=== PATIENT | male | born 1965 | race Caucasian/White ===

== ENCOUNTER 2025-04-17 18:28 | Inpatient (IN) ==
[2025-04-17 19:10] LABS: Hematocrit (blood only) 40.4 % (42.0-52.0); Hemoglobin 13.4 g/dl (14.0-18.0); Immature Granulocytes # (auto) 0.02 K/uL (0.01-0.20); Immature Granulocytes % (auto) 0.3 %; Mean Corpuscular Hemoglobin 29.6 pg (25.0-34.0); Mean Corpuscular Volume 89.4 fL (80.0-100.0); Platelet Count 154 K/uL (130-400); RDW Standard Deviation 46.0 fL (36.4-46.3); Red Blood Count 4.52 M/uL (4.70-6.10); White Blood Count 7.29 K/ul (4.8-10.8)
[2025-04-17 19:23] LABS: Alanine Aminotransferase 16.0 U/L (7-52); Albumin Globulin Ratio 0.6 (0.9-2); Albumin Level 2.2 gm/dl (3.4-5.0); Alkaline Phosphatase 127.0 U/L (34-104); Anion Gap 8.0 (3-11); Bilirubin,Total 0.9 mg/dl (0.2-1.0); Blood Urea Nitrogen 4.0 mg/dl (6-23); Calcium 8.3 mg/dl (8.6-10.3); Carbon Dioxide 22.0 mmol/L (21-32); Chloride 107.0 mmol/L (98-107); Creatinine Clr Calc Pharmacy 64.7 ml/min; Globulin 4.0 gm/dl (2.5-4.0); Glucose 109.0 mg/dl (70-99(Fasting)); Lipase 23.0 U/L (11-82); Potassium 3.4 mmol/L (3.5-5.1); Sodium 137.0 mmol/L (136-145); Total Protein 6.2 gm/dl (6.0-8.3)
--- NOTE | 2025-04-17 19:34 | Emergency Department Note ---
Impression & Plan Cirrhosis, Fluid overload, Pulmonary edema, Anasarca ED Provider Note NAME: JEROMY AYOUB AGE: 59 SEX: M : 1965 ARRIVES VIA: Walk-In INFORMANT: Patient, ED PROVIDER(S): Xiang Ochoa DO CHIEF COMPLAINT: Weakness, swelling in his legs abdomen and HPI: Patient is a 59-year-old male brought in by family who notes that he has had increased swelling of his entire body including his legs belly which has been worsening over the past 2 weeks. They have been recently placed on Lasix and this has not been helping. He admits to feeling very weak and rundown. He did fall onto his buttocks today. He did not hit his head. Family notes that he has been slightly more confused than baseline. Denies any chest pain or shortness of breath. No nausea, vomiting, or diarrhea. ADDITIONAL HISTORY OBTAINED: Per HPI Chronic Medical/Social Conditions Affecting Care: Per HPI PAST MEDICAL HISTORY:See Below PAST SURGICAL HISTORY:See Below FAMILY HISTORY:See Below SOCIAL HISTORY:See Below HOME MEDICATIONS:See Below ALLERGIES:See Below VITALS:See Below PHYSICAL EXAMINATION: GENERAL: Sitting up in bed, alert, ill-appearing, disheveled HEAD: NC/AT EYE EXAM: normal conjunctiva. [PERRL and EOM's grossly intact.] OROPHARYNX: no exudate, no erythema, lips, buccal mucosa, and tongue normal and mucous membranes are moist NECK: supple, no nuchal rigidity, no adenopathy, non-tender LUNGS: Clear to auscultation. Normal chest wall mechanics HEART: no murmurs, S1 normal and S2 normal ABDOMEN: abdomen soft, non-tender, normo-active bowel sounds, no masses, no rebound or guarding. UPPER EXTREMITIES: upper extremities are grossly normal. LOWER EXTREMITIES: Pitting edema throughout the lower extremities tracking up to the abdomen NEURO EXAM: Normal sensorium, cranial nerves II-XII grossly intact, normal speech, no gross weakness of arms, no gross weakness of legs. MEDICAL DECISION MAKING: Patient is a 59-year-old male who presents ER for above-stated complaint. IV was established and blood work was obtained. Labs showed no significant leukocytosis or anemia. BMP with mild hypokalemia 3.4. LFTs bilirubin was unremarkable. Troponin was negative. BNP elevated at 115. Lipase was normal. UA was clean. On exam he has diffuse pitting edema from his feet tracking up into his abdomen and chest. Patient was given IV Lasix. Chest x-ray consistent with pulmonary edema and pleural effusions. CT of the head was negative. Case was discussed with the hospitalist for further evaluation management treatment. Consults/Care Managements Discussions: Per [facility] Triage Nursing notes reviewed. Limited review of prior medical records performed Vital Signs: reviewed and remarkable for no significant abnormalities Differential diagnosis: Infection, dehydration, metabolic abnormality, hypo/hyperglycemia, electrolyte disturbance, anemia, hypoxia, cardiac sources, intracerebral event, toxicologic, neurologic, as well as other pathologies. ER treatment provided: See below Diagnostics interpreted by me include EKG and cardiac monitoring as listed below: -Cardiac Monitoring: An order was placed for continuous cardiac monitoring. The monitor shows a rate of 70 with sinus rhythm. -ECG: Sinus rhythm at a [address] depressions in the septal leads Poor baseline in V3 QTc 505 -Laboratory studies:Interpreted by me as stated above in MDM and shown below. Imaging studies: Xrays: As interpreted by me: Portable AP upright 1 view of the chest shows pulmonary edema with effusions CTs show: CT head was negative Procedures:none Critical Care: None Past Med/Surg History Problem List (Updated 04/17/25 @ 22:36 by Xiang Ochoa DO) Anasarca (Acute) Pulmonary edema (Acute) Fluid overload (Acute) Cirrhosis (Acute) Social History Smoking Status: Unknown if ever smoked Preferred Language: Maori Feels Safe at Home: Yes Allergies Allergies Allergy/AdvReac Type Severity Reaction Status Date / Time No Known Allergies Allergy Unverified 04/11/25 15:56 Home Meds Home Medications Medication Instructions Recorded Confirmed carvedilol 6.25 mg tablet 6.25 mg PO BID 04/11/25 04/17/25 citalopram 20 mg tablet 20 mg PO QAM 04/11/25 04/17/25 eszopiclone 1 mg tablet (Lunesta) 1 mg PO HS 04/11/25 04/17/25 furosemide 20 mg tablet 20 mg PO QAM 04/11/25 04/17/25 levetiracetam 750 mg tablet 750 mg PO BID 04/11/25 04/17/25 levothyroxine 50 mcg tablet 50 mcg PO DAILYBB 04/11/25 04/17/25 potassium chloride 20 mEq 20 meq PO QAM 04/11/25 04/17/25 tablet,extended release(part/cryst) rosuvastatin 40 mg tablet 40 mg PO PM 04/11/25 04/17/25 Results & Data (ED) Vital Signs Vital Signs - 24 hr 04/17/25 18:29 04/17/25 18:46 04/17/25 19:05 Temperature 36 C L 37 C Temperature Source Temporal Artery Scan Oral Pulse Rate 73 74 Pulse Rate [Right Finger] 70 Pulse Rhythm Pulse Rhythm [Right Finger] Regular Pulse Strength [Right Finger] Normal Respiratory Rate 19 20 Respiratory Effort / Characteristics Non-Labored Spontaneous Respiratory Depth Normal Respiratory Pattern Regular Blood Pressure 135/84 Blood Pressure [Right Arm] 129/82 Blood Pressure Mean 101 Blood Pressure Mean [Right Arm] 97 Blood Pressure Position [Right Arm] Lying Pulse Oximetry 97 100 Oxygen Delivery Method Room Air Room Air Sepsis Recent Fever Within 48 Hours No Sepsis New/Unexplained Change in Mental Status N/A Sepsis Action Taken by Nursing No Action Required 04/17/25 19:05 04/17/25 21:22 Temperature Temperature Source Pulse Rate 70 Pulse Rate [Right Finger] 69 Pulse Rhythm Regular Pulse Rhythm [Right Finger] Regular Pulse Strength [Right Finger] Normal Respiratory Rate 20 17 Respiratory Effort / Characteristics Non-Labored Spontaneous Respiratory Depth Normal Respiratory Pattern Regular Blood Pressure Blood Pressure [Right Arm] 152/97 H Blood Pressure Mean Blood Pressure Mean [Right Arm] 115 Blood Pressure Position [Right Arm] Lying Pulse Oximetry 100 98 Oxygen Delivery Method Room Air Room Air Sepsis Recent Fever Within 48 Hours Sepsis New/Unexplained Change in Mental Status Sepsis Action Taken by Nursing Laboratory Data 04/17/25 18:46 04/17/25 18:46 Lab Results 04/17/25 04/17/25 04/17/25 Range/Units 18:46 20:27 21:09 WBC 7.29 (4.8-10.8) K/ul RBC 4.52 L (4.70-6.10) M/uL Hgb 13.4 L (14.0-18.0) g/dl Hct 40.4 L (42.0-52.0) % MCV 89.4 (80.0-100.0) fL MCH 29.6 (25.0-34.0) pg MCHC 33.2 (32.0-36.0) g/dL RDW Std Deviation 46.0 (36.4-46.3) fL RDW Coeff of Yoly 14.3 (11.5-14.5) % Plt Count 154 (130-400) K/uL MPV 9.9 (9.4-12.4) fL Immature Gran % (Auto) 0.3 % Neut % (Auto) 45.3 % Lymph % (Auto) 42.8 % [place] % (Auto) 8.1 % Eos % (Auto) 2.5 % Baso % (Auto) 1.0 % Neut # (Auto) 3.31 (1.40-6.50) K/uL Lymph # (Auto) 3.12 (1.20-3.40) K/uL [place] # (Auto) 0.59 (0.11-0.59) K/uL Eos # (Auto) 0.18 (0.00-0.50) K/uL Baso # (Auto) 0.07 (0.00-0.20) K/uL Immature Gran # (Auto) 0.02 (0.01-0.20) K/uL PT Cancelled INR Cancelled Sodium 137 (136-145) mmol/L Potassium 3.4 L (3.5-5.1) mmol/L Chloride 107 (98-107) mmol/L Carbon Dioxide 22 (21-32) mmol/L Anion Gap 8 (3-11) BUN 4 L (6-23) mg/dl Creatinine 1.30 (0.6-1.4) mg/dl Est Cr Clr Drug Dosing 64.7 ml/min eGFR 64.07 BUN/Creatinine Ratio 3.1 L (10-20) Glucose 109 H (70-99(Fasting)) mg/dl Calcium 8.3 L (8.6-10.3) mg/dl Total Bilirubin 0.9 (0.2-1.0) mg/dl AST 56 H (13-39) U/L ALT 16 (7-52) U/L Alkaline Phosphatase 127 H (34-104) U/L Ammonia Cancelled 33.0 Troponin I High Sens Cancelled 6.2 B-Natriuretic Peptide 115 H (0-100) pg/ml Total Protein 6.2 (6.0-8.3) gm/dl Albumin 2.2 L (3.4-5.0) gm/dl Globulin 4.0 (2.5-4.0) gm/dl Albumin/Globulin Ratio 0.6 L (0.9-2) Lipase 23 (11-82) U/L Urine Color Urine Appearance (Clear) Urine pH (4.5-7.5) Ur Specific [place] (1.000-1.030) Urine Protein (Negative) Urine Glucose (UA) (Negative) Urine Ketones (Negative) Urine Blood (Negative) Urine Nitrite (Negative) Urine Bilirubin (Negative) Urine Urobilinogen (Negative) Ur Leukocyte Esterase (Negative) Urine WBC (Auto) (0-5) /hpf Urine RBC (Auto) (0-2) /hpf U Hyaline Cast (Auto) (0-2) /lpf U Epithel Cells (Auto) (0-2) /hpf Urine Bacteria (Auto) (None Seen) Calcium Oxalate Crystal (None Prsent) Urine Mucus (None Prsent) Urine Comment 04/17/25 Range/Units Unknown WBC (4.8-10.8) K/ul RBC (4.70-6.10) M/uL Hgb (14.0-18.0) g/dl Hct (42.0-52.0) % MCV (80.0-100.0) fL MCH (25.0-34.0) pg MCHC (32.0-36.0) g/dL RDW Std Deviation (36.4-46.3) fL RDW Coeff of Yoly (11.5-14.5) % Plt Count (130-400) K/uL MPV (9.4-12.4) fL Immature Gran % (Auto) % Neut % (Auto) % Lymph % (Auto) % [place] % (Auto) % Eos % (Auto) % Baso % (Auto) % Neut # (Auto) (1.40-6.50) K/uL Lymph # (Auto) (1.20-3.40) K/uL [place] # (Auto) (0.11-0.59) K/uL Eos # (Auto) (0.00-0.50) K/uL Baso # (Auto) (0.00-0.20) K/uL Immature Gran # (Auto) (0.01-0.20) K/uL PT INR Sodium (136-145) mmol/L Potassium (3.5-5.1) mmol/L Chloride (98-107) mmol/L Carbon Dioxide (21-32) mmol/L Anion Gap (3-11) BUN (6-23) mg/dl Creatinine (0.6-1.4) mg/dl Est Cr Clr Drug Dosing ml/min eGFR BUN/Creatinine Ratio (10-20) Glucose (70-99(Fasting)) mg/dl Calcium (8.6-10.3) mg/dl Total Bilirubin (0.2-1.0) mg/dl AST (13-39) U/L ALT (7-52) U/L Alkaline Phosphatase (34-104) U/L Ammonia Troponin I High Sens B-Natriuretic Peptide (0-100) pg/ml Total Protein (6.0-8.3) gm/dl Albumin (3.4-5.0) gm/dl Globulin (2.5-4.0) gm/dl Albumin/Globulin Ratio (0.9-2) Lipase (11-82) U/L Urine Color Dark Yellow Urine Appearance Cloudy A (Clear) Urine pH 5.0 (4.5-7.5) Ur Specific [place] 1.025 (1.000-1.030) Urine Protein 1+ H (Negative) Urine Glucose (UA) Negative (Negative) Urine Ketones Trace H (Negative) Urine Blood 1+ H (Negative) Urine Nitrite Negative (Negative) Urine Bilirubin 1+ H (Negative) Urine Urobilinogen Negative (Negative) Ur Leukocyte Esterase Negative (Negative) Urine WBC (Auto) 0-5 (0-5) /hpf Urine RBC (Auto) 6-10 H (0-2) /hpf U Hyaline Cast (Auto) >20 H (0-2) /lpf U Epithel Cells (Auto) 0-2 (0-2) /hpf Urine Bacteria (Auto) None Seen (None Seen) Calcium Oxalate Crystal Present A (None Prsent) Urine Mucus Present A (None Prsent) Urine Comment Administered Medications Discontinued Medications Furosemide (Furosemide 40 Mg/4 Ml Vial) 40 mg IV ONE ONE Stop: 04/17/25 20:30 Last Admin: 04/17/25 20:35 Dose: 40 mg Documented By: [facility] Imaging Data Radiologist's Impression: Chest X-Ray 04/17/25 19:31 Chest radiograph, one view History: Weakness Comparison: 04/11/2025 Findings/impression: Single AP view of the chest performed. The heart is enlarged. Indistinct pulmonary vasculature. Perihilar opacities consistent with pulmonary edema. There are likely bilateral pleural effusions. Retrocardiac opacity favors atelectasis over consolidation. No pneumothorax. No bony abnormalities. Electronically signed by Evert Zheng 04-17-2025 7:[address] 04/17/25 19:31 Exam(s): CT HEAD Without Contrast EXAM: CT Head Without Intravenous Contrast CLINICAL HISTORY: Reason for exam: ams. TECHNIQUE: Axial computed tomography images of the head/brain without intravenous contrast. CTDI is 71 mGy and DLP is 1250.21 mGy-cm. Automated exposure control was utilized for the study. A dose lowering technique was utilized adhering to the principles of ALARA. COMPARISON: No relevant prior studies available. FINDINGS: Brain: Remote ischemic injury of the left temporal, occipital and parietal lobes with encephalomalacia and gliosis. Remote ischemic injuries of the thalami and capsules. No hemorrhage. Moderate nonspecific white matter changes. No edema. Ventricles: Unremarkable. No ventriculomegaly. Bones/joints: Unremarkable. No acute fracture. Soft tissues: Unremarkable. Sinuses: Chronic right ethmoid and frontal sinusitis. No acute sinusitis. Mastoid air cells: Unremarkable as visualized. No mastoid effusion. IMPRESSION: No evidence of acute intracranial pathology. Electronically signed by: Debbi Mack MD 04/17/25 21:05 PM Discharge Plan Visit Data Chief Complaint: Abdominal Pain Stated Complaint: FLUIDS ED Provider: Xiang Ochoa Discharge Problem: Cirrhosis, Fluid overload, Pulmonary edema, Anasarca Condition: Serious Forms Stand Alone Forms: [facility] Prescriptions Prescriptions: No Action potassium chloride 20 mEq tablet,ER particles/crystals 20 meq PO QAM Rx Instructions: take with food levothyroxine 50 mcg tablet 50 mcg PO DAILYBB levetiracetam 750 mg tablet 750 mg PO BID furosemide 20 mg tablet 20 mg PO QAM rosuvastatin 40 mg tablet 40 mg PO PM eszopiclone [Lunesta] 1 mg tablet 1 mg PO HS carvedilol 6.25 mg tablet 6.25 mg PO BID citalopram 20 mg tablet 20 mg PO QAM Referrals Referrals: Kay Nix PA-C [Primary Care Provider] - Discharge Problem: Cirrhosis Qualifiers: Hepatic cirrhosis type: unspecified hepatic cirrhosis Ascites presence: with ascites Qualified Code(s): K74.60 - Unspecified cirrhosis of liver Fluid overload Qualifiers: Hypervolemia type: unspecified Qualified Code(s): E87.70 - Fluid overload, unspecified Pulmonary edema Qualifiers: Chronicity: acute Qualified Code(s): J81.0 - Acute pulmonary edema
--- NOTE | 2025-04-17 19:54 | XRay Report ---
Chest radiograph, one view History: Weakness Comparison: 04/11/2025 Findings/impression: Single AP view of the chest performed. The heart is enlarged. Indistinct pulmonary vasculature. Perihilar opacities consistent with pulmonary edema. There are likely bilateral pleural effusions. Retrocardiac opacity favors atelectasis over consolidation. No pneumothorax. No bony abnormalities. Electronically signed by Evert Zheng 04-17-2025 7:54 PM
[2025-04-17] MEDS: FUROSEMIDE 40 MG/4 ML VIAL IV ONE (20:35)
--- NOTE | 2025-04-17 21:06 | History & Physical Report ---
Date of Service April 17, 2025 Assessment & Plan (1) Anasarca: (2) Cirrhosis: Plan 59yo male with history of liver cirrhosis presenting with worsening edema and ascites, difficulty with ambulation at home. #Anasarca - worsening ascites and bilateral LE edema. Likely secondary to underlying cirrhosis. Uncertain etiology of cirrhosis - patient was on Minocycline in the past. Also drank EtOH fairly regularly but not in excess. There is a family history of liver disease -Admit to medical with telemetry -Check acute hepatitis panel and ferritin -Check RUQUS -Repeat LFTs in AM -Continue Lasix 40mg po daily and add Spironolactone 25mg po daily -Continue Carvedilol - patient -Monitor fluid balance, daily weights and intake/output -Patient would likely benefit from a paracentesis - diagnostic and therapeutic - in the morning -Patient should keep his scheduled appointment with [facility] on 04/30/25 #Hypothyroidism -Check TSH -Continue Synthroid 50mcg po daily #Depression -Continue Celexa 20mg po qAM History of Present Illness Chief Complaint: edema and abdominal distention Primary Care Provider: Kay Nix PA-C Sai Loja is a 59yo male with history of recently diagnosed cirrhosis of the liver and two prior CVAs (residual short term memory loss, peripheral vision loss, poor balance and LLE weakness) presenting with worsening bilateral LE edema as well as abdominal distention. Patient was seen in the ER on 04/11 with these complaints - he was administered Lasix and ultimately discharged home. Patient is establishing care with [facility] for ongoing care of his cirrhosis - he has his initial appointment on 04/30. Patient reports increased difficulty with ambulation. He has some baseline difficulty due to prior strokes and chronic LLE weakness - he uses a cane at home. With the increased edema and abdominal distention he has been having more difficulty getting around. He also has poor appetite and decreased oral intake. Daughter feels that he has gained close to 15 pounds of fluid. No fever, chills, chest pain, cough or SOB. He does have some mild abdominal discomfort No melena or hematochezia No vomiting or hematemesis In the ER patient is afebrile, HD stable ER Course: Lasix 40mg IV Allergies Allergy/AdvReac Type Severity Reaction Status Date / Time No Known Allergies Allergy Unverified 04/11/25 15:56 Home Medications Medication Instructions Recorded Confirmed Type carvedilol 6.25 mg tablet 6.25 mg PO BID 04/11/25 04/17/25 History citalopram 20 mg tablet 20 mg PO QAM 04/11/25 04/17/25 History eszopiclone 1 mg tablet (Lunesta) 1 mg PO HS 04/11/25 04/17/25 History furosemide 20 mg tablet 20 mg PO QAM 04/11/25 04/17/25 History levetiracetam 750 mg tablet 750 mg PO BID 04/11/25 04/17/25 History levothyroxine 50 mcg tablet 50 mcg PO DAILYBB 04/11/25 04/17/25 History potassium chloride 20 mEq 20 meq PO QAM 04/11/25 04/17/25 History tablet,extended release(part/cryst) rosuvastatin 40 mg tablet 40 mg PO PM 04/11/25 04/17/25 History Past Med/Surg History Problem List Anasarca (Acute) Pulmonary edema (Acute) Fluid overload (Acute) Cirrhosis (Acute) Social History Smoking Status: Unknown if ever smoked Preferred Language: Hungarian Feels Safe at Home: Yes Review of Systems Review of Systems: All systems reviewed & are unremarkable except as noted in HPI & below Physical Exam Physical Exam: General: patient chronically ill in appearance, answers questions appropriately Skin: warm, dry, intact, grayish discoloration due to history of Minocycline use HEENT: NC/AT, PERRL, EOMI, anicteric sclera, conjunctiva without injection, external ear normal to inspection and nontender, nares patent, moist mucus membranes, dentition intact, no oropharyngeal lesions, neck supple, trachea midline, no LAD, no thyromegaly, no JVD Heart: +S1/S2, regular, no m/r/g Lungs: equal air entry bilaterally, no rales/rhonchi/wheezes Abd: +BS, soft, mildly tender diffusely with no rebound/guarding, +ascites with fluid wave Ext: 4+ pitting edema of bilateral LE to thighs Neuro: nonfocal, patient AA&O x 4, speech intact, no facial droop, moving all extremities on command with equal strength 5/5 Results & Data Results & Data Vital Signs (Past 12 Hours) Vital Signs Temp Pulse Pulse Resp BP BP Pulse Ox 04/17/25 19:05 70 20 100 04/17/25 19:05 37 C 70 20 129/82 100 04/17/25 18:46 74 04/17/25 18:29 36 C L 73 19 135/84 97 O2 Del Method 04/17/25 19:05 Room Air 04/17/25 19:05 Room Air 04/17/25 18:46 04/17/25 18:29 Room Air Laboratory Results Laboratory Results WBC 7.29 K/ul (4.8-10.8) 04/17/25 18:46 RBC 4.52 M/uL (4.70-6.10) L 04/17/25 18:46 Hgb 13.4 g/dl (14.0-18.0) L 04/17/25 18:46 Hct 40.4 % (42.0-52.0) L 04/17/25 18:46 MCV 89.4 fL (80.0-100.0) 04/17/25 18:46 MCH 29.6 pg (25.0-34.0) 04/17/25 18:46 MCHC 33.2 g/dL (32.0-36.0) 04/17/25 18:46 RDW Std Deviation 46.0 fL (36.4-46.3) 04/17/25 18:46 RDW Coeff of Yoly 14.3 % (11.5-14.5) 04/17/25 18:46 Plt Count 154 K/uL (130-400) 04/17/25 18:46 MPV 9.9 fL (9.4-12.4) 04/17/25 18:46 Immature Gran % (Auto) 0.3 % 04/17/25 18:46 Neut % (Auto) 45.3 % 04/17/25 18:46 Lymph % (Auto) 42.8 % 04/17/25 18:46 [place] % (Auto) 8.1 % 04/17/25 18:46 Eos % (Auto) 2.5 % 04/17/25 18:46 Baso % (Auto) 1.0 % 04/17/25 18:46 Neut # (Auto) 3.31 K/uL (1.40-6.50) 04/17/25 18:46 Lymph # (Auto) 3.12 K/uL (1.20-3.40) 04/17/25 18:46 [place] # (Auto) 0.59 K/uL (0.11-0.59) 04/17/25 18:46 Eos # (Auto) 0.18 K/uL (0.00-0.50) 04/17/25 18:46 Baso # (Auto) 0.07 K/uL (0.00-0.20) 04/17/25 18:46 Immature Gran # (Auto) 0.02 K/uL (0.01-0.20) 04/17/25 18:46 PT 15.5 Seconds (9.0-12.0) H 04/17/25 22:37 INR 1.5 (0.9-1.1) H 04/17/25 22:37 Sodium 137 mmol/L (136-145) 04/17/25 18:46 Potassium 3.4 mmol/L (3.5-5.1) L 04/17/25 18:46 Chloride 107 mmol/L (98-107) 04/17/25 18:46 Carbon Dioxide 22 mmol/L (21-32) 04/17/25 18:46 Anion Gap 8 (3-11) 04/17/25 18:46 BUN 4 mg/dl (6-23) L 04/17/25 18:46 Creatinine 1.30 mg/dl (0.6-1.4) 04/17/25 18:46 Est Cr Clr Drug Dosing 64.7 ml/min 04/17/25 18:46 eGFR 64.07 04/17/25 18:46 BUN/Creatinine Ratio 3.1 (10-20) L 04/17/25 18:46 Glucose 109 mg/dl (70-99(Fasting)) H 04/17/25 18:46 Calcium 8.3 mg/dl (8.6-10.3) L 04/17/25 18:46 Total Bilirubin 0.9 mg/dl (0.2-1.0) 04/17/25 18:46 AST 56 U/L (13-39) H 04/17/25 18:46 ALT 16 U/L (7-52) 04/17/25 18:46 Alkaline Phosphatase 127 U/L (34-104) H 04/17/25 18:46 Ammonia 33.0 umol/L (18-72) 04/17/25 21:09 Troponin I High Sens 6.2 pg/ml (0-20) 04/17/25 21:09 B-Natriuretic Peptide 115 pg/ml (0-100) H 04/17/25 20:27 Total Protein 6.2 gm/dl (6.0-8.3) 04/17/25 18:46 Albumin 2.2 gm/dl (3.4-5.0) L 04/17/25 18:46 Globulin 4.0 gm/dl (2.5-4.0) 04/17/25 18:46 Albumin/Globulin Ratio 0.6 (0.9-2) L 04/17/25 18:46 Lipase 23 U/L (11-82) 04/17/25 18:46 Urine Color Dark Yellow 04/17/25 Unknown Urine Appearance Cloudy (Clear) A 04/17/25 Unknown Urine pH 5.0 (4.5-7.5) 04/17/25 Unknown Ur Specific [place] 1.025 (1.000-1.030) 04/17/25 Unknown Urine Protein 1+ (Negative) H 04/17/25 Unknown Urine Glucose (UA) Negative (Negative) 04/17/25 Unknown Urine Ketones Trace (Negative) H 04/17/25 Unknown Urine Blood 1+ (Negative) H 04/17/25 Unknown Urine Nitrite Negative (Negative) 04/17/25 Unknown Urine Bilirubin 1+ (Negative) H 04/17/25 Unknown Urine Urobilinogen Negative (Negative) 04/17/25 Unknown Ur Leukocyte Esterase Negative (Negative) 04/17/25 Unknown Urine WBC (Auto) 0-5 /hpf (0-5) 04/17/25 Unknown Urine RBC (Auto) 6-10 /hpf (0-2) H 04/17/25 Unknown U Hyaline Cast (Auto) >20 /lpf (0-2) H 04/17/25 Unknown U Epithel Cells (Auto) 0-2 /hpf (0-2) 04/17/25 Unknown Urine Bacteria (Auto) None Seen (None Seen) 04/17/25 Unknown Calcium Oxalate Crystal Present (None Prsent) A 04/17/25 Unknown Urine Mucus Present (None Prsent) A 04/17/25 Unknown Urine Comment 04/17/25 Unknown Impressions Chest X-Ray 04/17/25 19:31 Chest radiograph, one view History: Weakness Comparison: 04/11/2025 Findings/impression: Single AP view of the chest performed. The heart is enlarged. Indistinct pulmonary vasculature. Perihilar opacities consistent with pulmonary edema. There are likely bilateral pleural effusions. Retrocardiac opacity favors atelectasis over consolidation. No pneumothorax. No bony abnormalities. Electronically signed by Evert Zheng 04-17-2025 7:[address] 04/17/25 19:31 Exam(s): CT HEAD Without Contrast EXAM: CT Head Without Intravenous Contrast CLINICAL HISTORY: Reason for exam: ams. TECHNIQUE: Axial computed tomography images of the head/brain without intravenous contrast. CTDI is 71 mGy and DLP is 1250.21 mGy-cm. Automated exposure control was utilized for the study. A dose lowering technique was utilized adhering to the principles of ALARA. COMPARISON: No relevant prior studies available. FINDINGS: Brain: Remote ischemic injury of the left temporal, occipital and parietal lobes with encephalomalacia and gliosis. Remote ischemic injuries of the thalami and capsules. No hemorrhage. Moderate nonspecific white matter changes. No edema. Ventricles: Unremarkable. No ventriculomegaly. Bones/joints: Unremarkable. No acute fracture. Soft tissues: Unremarkable. Sinuses: Chronic right ethmoid and frontal sinusitis. No acute sinusitis. Mastoid air cells: Unremarkable as visualized. No mastoid effusion. IMPRESSION: No evidence of acute intracranial pathology. Electronically signed by: Debbi Mack MD 04/17/25 21:05 PM Code Status & VTE Plan VTE Prophylaxis Plan VTE Prophylaxis will be ordered: Yes PG Care Time/CCT Total # of Minutes Spent Total Time Spent with Patient: Total time spent is greater than 50% in coordination of care (as documented) at patient's floor/unit and/or counseling patient: Coding Level of Care Code 05289 INT INP/OBS CARE 3/75MIN Diagnoses Anasarca R60.1 Cirrhosis K74.60; R18.8 Ascites presence: with ascites Hepatic cirrhosis type: unspecified hepatic cirrhosis (2) Cirrhosis Ascites presence: with ascites Hepatic cirrhosis type: unspecified hepatic cirrhosis Qualified Code(s): K74.60 - Unspecified cirrhosis of liver; R18.8 - Other ascites
[2025-04-17 21:11] LABS: Appearance Urine Cloudy (Clear); Bacteria Urine Automated None Seen (None Seen); Cast Urine Automated >20 /lpf (0-2); Epithelial Cell Urine Auto 0-2 /hpf (0-2); Glucose Urine UA Negative (Negative); WBC Urine Automated 0-5 /hpf (0-5)
[2025-04-17 23:28] LABS: INR 1.5 (0.9-1.1); Prothrombin Time 15.5 Seconds (9.0-12.0)
[2025-04-18 01:03] LABS: Thyroid Stimulating Hormone 14.503 uIu/ml (0.300-4.500)
[2025-04-18] MEDS: levETIRAcetam 250 MG TAB PO SCH (01:34)
[2025-04-18 01:38] LABS: T4 Free Thyroxine 1.88 ng/dl (0.61-1.60)
--- NOTE | 2025-04-18 01:55 | Ultrasound Report ---
EXAM: US liver CLINICAL HISTORY: Abnormal LFTs TECHNIQUE: Limited ultrasound of the liver and gallbladder was performed in greyscale and Doppler. Multiple images were obtained in transverse and longitudinal planes. COMPARISON: No prior studies are available for comparison. FINDINGS: Liver: Liver size: The liver is enlarged in size, measuring 19 cm, and shows increased parenchymal echogenicity with lobulated margins. No mass lesion. No evidence of focal lesions, cysts, or masses. Hepatic vasculature appears normal. Fluid is seen around the liver extending down to the right lower quadrant, with the bowel loops floating. Faint echoes are also seen. Gallbladder: Gallbladder size: The gallbladder wall appears mildly prominent, likely reactionary to ascites. An isoechoic area is identified in the gallbladder lumen on image #42/49, likely representing sludge. No gallstones. No signs of acute cholecystitis. Biliary Tree: Common bile duct diameter: 0.46 cm. The common bile duct is within normal limits in caliber and is not dilated. No evidence of choledocholithiasis or biliary obstruction. The right kidney measures 10.7 x 4.5 x 4.3 cm. No cysts, hydronephrosis, or mass are seen. The renal parenchymal echogenicity is normal. Possible minimal right-sided pleural effusion is seen on image #30/49. IMPRESSION: Enlarged liver with increased parenchymal echogenicity and lobulated margins. Free fluid with faint echoes. The possibility of chronic liver disease cannot be ruled out. Needs clinical and laboratory correlation. The gallbladder wall appears mildly prominent, likely reactionary to ascites. An isoechoic area is identified in the gallbladder lumen on image #42/49, likely representing sludge. Electronically signed by Anjel Chan 04-18-2025 01:54 AM
[2025-04-18 02:00] LABS: Ferritin 1912.0 ng/ml (8-388)
[2025-04-18] MEDS: LEVOTHYROXINE SODIUM 50 MCG TABLET PO SCH (06:16)
[2025-04-18 06:25] LABS: Hematocrit (blood only) 36.0 % (42.0-52.0); Hemoglobin 12.2 g/dl (14.0-18.0); Mean Corpuscular Hemoglobin 29.7 pg (25.0-34.0); Mean Corpuscular Volume 87.6 fL (80.0-100.0); Platelet Count 129 K/uL (130-400); RDW Standard Deviation 45.6 fL (36.4-46.3); Red Blood Count 4.11 M/uL (4.70-6.10); White Blood Count 6.28 K/ul (4.8-10.8)
[2025-04-18 06:41] LABS: Alanine Aminotransferase 13.0 U/L (7-52); Albumin Level 1.9 gm/dl (3.4-5.0); Alkaline Phosphatase 108.0 U/L (34-104); Anion Gap 7.0 (3-11); Bilirubin,Total 0.8 mg/dl (0.2-1.0); Blood Urea Nitrogen 4.0 mg/dl (6-23); Calcium 7.9 mg/dl (8.6-10.3); Carbon Dioxide 26.0 mmol/L (21-32); Chloride 107.0 mmol/L (98-107); Creatinine Clr Calc Pharmacy 63.8 ml/min; Glucose 83.0 mg/dl (70-99(Fasting)); Potassium 3.2 mmol/L (3.5-5.1); Sodium 140.0 mmol/L (136-145); Total Protein 5.4 gm/dl (6.0-8.3)
[2025-04-18] MEDS: FUROSEMIDE 40 MG TAB PO SCH (07:55)
[2025-04-18] MEDS: CITALOPRAM 20 MG TAB PO SCH (07:56)
[2025-04-18] MEDS: SPIRONOLACTONE 25 MG TAB PO SCH (07:56)
[2025-04-18] MEDS ORDERED: INFLUENZA VACC TS2025-26(6m+)/PF (IIV3) 0.5mL Syr IM ONE (09:00)
[2025-04-18 09:12] LABS: Hep B Surface Ag with confirm Negative (Negative)
[2025-04-18] MEDS: POTASSIUM CHLORIDE CRTAB 20 MEQ TABCR PO STA (09:16)
[2025-04-18 09:18] LABS: Hep C Ab Rflx HepCQuant RNA Negative (Negative)
[2025-04-18 09:37] LABS: Magnesium 2.2 mg/dl (1.7-2.4)
--- NOTE | 2025-04-18 14:27 | Ultrasound Report ---
ULTRASOUND-GUIDED PARACENTESIS CLINICAL HISTORY: Ascites PROCEDURE: Procedure and risks were explained. Informed consent was obtained. A final timeout was com pleted. A pocket of ascites was identified in the left lower quadrant. The left lower quadrant was pr epped and draped in sterile fashion. 1% lidocaine was utilized for skin anesthesia. Utilizing ultrasound guidance, a 5 Czech safety centesis catheter was advanced into the pocket of as cites. Ultrasound image was obtained. A total of 4.8 L of yellow ascites fluid was removed, with 1 L sent to lab for analysis. The catheter was removed and Band-Aid applied. The patient tolerated the pr ocedure well. Vital signs will be monitored postprocedure. IMPRESSION: Ultrasound-guided paracentesis as above. Performed, dictated, and signed by Chava Galeano PA-C; to be co-signed by Dr. Say Pike. Electronically signed by: Say Pike M.D. 04/18/2025 3:40 PM
[2025-04-18 15:48] LABS: Albumin Peritoneal Fluid < 1.5 gm/dl
[2025-04-18 16:03] LABS: Appearance Peritoneal Fluid Hazy; Color Peritoneal Fluid Pale Yellow; RBC Peritoneal Fluid Auto < 2000 /uL; WBC Peritoneal Fluid Auto 158 /ul (0-300)
--- NOTE | 2025-04-18 19:49 | Hospitalist Progress Note ---
Date of Service April 18, 2025 Assessment & Plan (1) Anasarca: (2) Cirrhosis: Plan 59yo male with history of liver cirrhosis presenting with worsening edema and ascites, difficulty with ambulation at home. #Ascites / anasarca / liver cirrhosis Suspect hypervolemia just from liver cirrhosis given distribution Paracentesis performed with significant relief from the patient < 5L therefore albumin not ordered but will also hold off further diuretics today to avoid his BP dropping Sent for cytology, cell count and cultures Planning on following up with Noel bowen as outpatient but plan to try and get his fluid status more stable first Hopefully can up titrate lasix and spironolactone pending repeat labs in AM SAAG unable to calculate as peritoneal albumin < 1.5 therefore range of 0.4 - 1.9 g/dL which isn't helpful but likely to be over 1.1. 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 I'd suggest we repeat these as outpatient and consider referral to endocrine if remains the same patter but will continue levothyroxine for now. -Continue Synthroid 50mcg po daily #Depression -Continue Celexa 20mg po qAM VTE Prophylaxis - encourage ambulation Disposition - continue on PCU Admission and Anticipated Discharge Date Admission Date: April 17, 2025 Subjective No significant change since admission. He reports some urine output but not excessive. Interested in getting paracentesis here. > 10lb weight gain in last week. Physical Exam Respiratory: normal respiratory effort, lungs clear to auscultation Cardiovascular: Rate/Rhythm: regular rate and regular rhythm Heart Sounds: no murmur Extremities: + pedal edema Gastrointestinal (Abdomen): Inspection/Auscultation: + abdomen distended; + abdomen abnormal to inspection Percussion/Palpation: abdomen soft; abdomen nontender, no guarding and abdomen not rigid Results & Data Results & Data Vital Signs (Past 12 Hours) Vital Signs Temp Pulse Resp BP BP Pulse Ox O2 Del Method 04/18/25 19:28 36.6 C 72 18 92/58 L 95 Room Air 04/18/25 16:13 36.5 C 87 20 124/76 99 Room Air 04/18/25 15:37 36.5 C 66 18 109/45 L 97 Room Air 04/18/25 14:40 36.4 C L 66 18 104/50 L 99 Room Air 04/18/25 11:03 36.5 C 70 20 100/60 97 Room Air 04/18/25 08:39 Room Air PG Care Time/CCT Total # of Minutes Spent Total Time Spent with Patient: Total time spent is greater than 50% in coordination of care (as documented) at patient's floor/unit and/or counseling patient: Coding Level of Care Code 67306 SUB INP/OBS CARE 3/50MIN Diagnoses Anasarca R60.1 Cirrhosis K74.60; R18.8 Ascites presence: with ascites Hepatic cirrhosis type: unspecified hepatic cirrhosis (2) Cirrhosis Ascites presence: with ascites Hepatic cirrhosis type: unspecified hepatic cirrhosis Qualified Code(s): K74.60 - Unspecified cirrhosis of liver; R18.8 - Other ascites
[2025-04-18] MEDS: ALBUMIN 25% 25 GM/100 ML VIAL IV ONE ×2 (20:11→22:56)
[2025-04-19] MEDS: ALBUMIN 25% 25 GM/100 ML VIAL IV ONE (04:13)
[2025-04-19] MEDS: LACTATED RINGER'S 1,000 ML IV SCH (06:16)
[2025-04-19] MEDS ORDERED: SPIRONOLACTONE 25 MG TAB PO SCH (09:00)
[2025-04-19 10:33] LABS: Anion Gap 6.0 (3-11); Blood Urea Nitrogen 3.0 mg/dl (6-23); Calcium 7.8 mg/dl (8.6-10.3); Carbon Dioxide 26.0 mmol/L (21-32); Chloride 107.0 mmol/L (98-107); Creatinine Clr Calc Pharmacy 72.3 ml/min; Glucose 97.0 mg/dl (70-99(Fasting)); Potassium 3.1 mmol/L (3.5-5.1); Sodium 139.0 mmol/L (136-145)
[2025-04-19] MEDS: SPIRONOLACTONE 25 MG TAB PO SCH (11:28)
[2025-04-19] MEDS: POTASSIUM CHLORIDE CRTAB 20 MEQ TABCR PO STA (11:28)
[2025-04-19 11:47] LABS: Basophils, Fluid 1 %; Lymphocytes, Fluid 45 %; Mono,Macrophage,Mesothelial 47 %; Neutrophils, Fluid 7 %
--- NOTE | 2025-04-19 13:10 | XCELERA ---
[id number]
[2025-04-19] MEDS: SIMETHICONE 80 MG CHEW PO PRN (14:49)
--- NOTE | 2025-04-19 22:05 | Hospitalist Progress Note ---
Date of Service April 19, 2025 Assessment & Plan (1) Anasarca: (2) Cirrhosis: (3) Hypothyroidism: Plan 59yo male with history of liver cirrhosis presenting with worsening edema and ascites, difficulty with ambulation at home. #Ascites / anasarca / liver cirrhosis Suspect hypervolemia just from liver cirrhosis given distribution. Investigation for alternative cause TTE with grade 2 diastolic dysfunction but otherwise unremarkable. Protein/Cr ratio pending collection of urine. Paracentesis performed 04/18 with significant relief from the patient 4.8 L, required albumin overnight but BP more stable this morning and Cr stable Stop IV fluids, I suspect now off carvedilol his BP will continue to improve and renal function normal therefore will increase spironolactone given ongoing hypokalemia and low normal BP will avoid lasix today but likely can restart this tomorrow Ascites cell count unremarkable. Cytology pending. AFP pending. SAAG unable to calculate as peritoneal albumin < 1.5 therefore range of 0.4 - 1.9 g/dL which isn't helpful but likely to be over 1.1 suggestive of liver cirrhosis as cause. 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 I'd suggest we repeat these as outpatient and consider referral to endocrine if remains the same patter but will continue levothyroxine for now. -Continue Synthroid 50mcg po daily #Depression -Continue Celexa 20mg po qAM VTE Prophylaxis - encourage ambulation Disposition - continue on med/tele Admission and Anticipated Discharge Date Admission Date: April 17, 2025 Subjective Significant improvement in abdominal distension following paracentesis. Hypotensive overnight follow paracentesis requiring albumin and placed on LR this morning. Renal function appears normal. Patient notes not producing significant amounts of urine. Physical Exam Respiratory: normal respiratory effort, lungs clear to auscultation Cardiovascular: Rate/Rhythm: regular rate and regular rhythm Heart Sounds: no murmur Extremities: + pedal edema Gastrointestinal (Abdomen): Inspection/Auscultation: + abdomen distended (much improved); + abdomen abnormal to inspection Percussion/Palpation: abdomen soft; abdomen nontender, no guarding and abdomen not rigid Results & Data Results & Data Vital Signs (Past 12 Hours) Vital Signs Temp Pulse Resp BP BP Pulse Ox O2 Del Method 04/19/25 19:06 36.8 C 68 18 128/61 95 Room Air 04/19/25 15:28 36.7 C 66 20 94/60 L 95 Room Air 04/19/25 11:28 36.9 C 69 18 92/50 L 97 Room Air PG Care Time/CCT Total # of Minutes Spent Total Time Spent with Patient: Total time spent is greater than 50% in coordination of care (as documented) at patient's floor/unit and/or counseling patient: Coding Level of Care Code 62157 SUB INP/OBS CARE 2/35MIN Diagnoses Anasarca R60.1 Cirrhosis K74.60; R18.8 Ascites presence: with ascites Hepatic cirrhosis type: unspecified hepatic cirrhosis Hypothyroidism E03.9 (2) Cirrhosis Ascites presence: with ascites Hepatic cirrhosis type: unspecified hepatic cirrhosis Qualified Code(s): K74.60 - Unspecified cirrhosis of liver; R18.8 - Other ascites
[2025-04-19 22:39] LABS: Protein Creatinine Ratio Urine 0.2 (0-0.2); Total Protein Urine Random 44.0 mg/dl (0-11.9)
[2025-04-20] MEDS: ACETAMINOPHEN 325 MG TAB PO PRN (05:50)
[2025-04-20 06:50] LABS: Anion Gap 7.0 (3-11); Blood Urea Nitrogen 3.0 mg/dl (6-23); Calcium 8.0 mg/dl (8.6-10.3); Carbon Dioxide 24.0 mmol/L (21-32); Chloride 105.0 mmol/L (98-107); Creatinine Clr Calc Pharmacy 77.0 ml/min; Glucose 78.0 mg/dl (70-99(Fasting)); Potassium 3.4 mmol/L (3.5-5.1); Sodium 136.0 mmol/L (136-145)
[2025-04-20] MEDS: ERYTHROMYCIN OP OINT 5 MG/GM 3.5 GM TUBE OP SCH (08:56)
[2025-04-20] MEDS: POTASSIUM CHLORIDE CRTAB 20 MEQ TABCR PO SCH (08:56)
[2025-04-20] MEDS: FUROSEMIDE 40 MG/4 ML VIAL IV SCH (08:56)
[2025-04-20] MEDS ORDERED: FUROSEMIDE 40 MG TAB PO SCH (09:00)
[2025-04-20] MEDS: SPIRONOLACTONE 25 MG TAB PO ONE (12:16)
--- NOTE | 2025-04-20 12:41 | Hospitalist Progress Note ---
Date of Service April 20, 2025 Assessment & Plan (1) Anasarca: (2) Cirrhosis: (3) Hypothyroidism: Plan 59yo male with history of liver cirrhosis presenting with worsening edema and ascites, difficulty with ambulation at home. #Ascites / anasarca / liver cirrhosis Suspect hypervolemia just from liver cirrhosis given distribution and SAAG. Investigation for alternative cause TTE with grade 2 diastolic dysfunction but otherwise unremarkable. Protein/Cr ratio normal. 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 I'd suggest we repeat these as outpatient and consider referral to endocrine if remains the same patter but will continue levothyroxine for now. -Continue Synthroid 50mcg po daily #Depression -Continue Celexa 20mg po qAM VTE Prophylaxis - encourage ambulation, patient has been in bed every day I have seen him although he reports he has been walking around Disposition - continue on med/tele Admission and Anticipated Discharge Date Admission Date: April 17, 2025 Subjective No acute concerns or questions from patient. Leg swelling decreased. Abdomen similar distension. Physical Exam Respiratory: normal respiratory effort, lungs clear to auscultation Cardiovascular: Rate/Rhythm: regular rate and regular rhythm Heart Sounds: no murmur Extremities: + pedal edema Gastrointestinal (Abdomen): Inspection/Auscultation: + abdomen distended (much improved); + abdomen abnormal to inspection Percussion/Palpation: abdomen soft; abdomen nontender, no guarding and abdomen not rigid Results & Data Results & Data Vital Signs (Past 12 Hours) Vital Signs Temp Pulse Pulse Resp BP Pulse Ox O2 Del Method 04/20/25 11:13 36.7 C 68 18 128/72 95 Room Air 04/20/25 08:45 Room Air 04/20/25 07:00 62 04/20/25 06:59 36.9 C 63 18 114/66 100 Room Air 04/20/25 02:33 36.7 C 71 18 102/63 95 Room Air PG Care Time/CCT Total # of Minutes Spent Total Time Spent with Patient: Total time spent is greater than 50% in coordination of care (as documented) at patient's floor/unit and/or counseling patient: Coding Level of Care Code 62242 SUB INP/OBS CARE 2/35MIN Diagnoses Anasarca R60.1 Cirrhosis K74.60; R18.8 Ascites presence: with ascites Hepatic cirrhosis type: unspecified hepatic cirrhosis Hypothyroidism E03.9 (2) Cirrhosis Ascites presence: with ascites Hepatic cirrhosis type: unspecified hepatic cirrhosis Qualified Code(s): K74.60 - Unspecified cirrhosis of liver; R18.8 - Other ascites
[2025-04-21 07:30] LABS: Anion Gap 7.0 (3-11); Blood Urea Nitrogen 3.0 mg/dl (6-23); Calcium 8.0 mg/dl (8.6-10.3); Carbon Dioxide 26.0 mmol/L (21-32); Chloride 105.0 mmol/L (98-107); Creatinine Clr Calc Pharmacy 75.6 ml/min; Glucose 72.0 mg/dl (70-99(Fasting)); Potassium 4.0 mmol/L (3.5-5.1); Sodium 138.0 mmol/L (136-145)
[2025-04-21] MEDS: SPIRONOLACTONE 100 MG TAB PO SCH (08:52)
--- NOTE | 2025-04-21 14:27 | Hospitalist Progress Note ---
Date of Service April 21, 2025 Assessment & Plan (1) Anasarca: (2) Cirrhosis: (3) Hypothyroidism: Plan 59yo male with history of liver cirrhosis presenting with worsening edema and ascites, difficulty with ambulation at home. #Ascites / anasarca / liver cirrhosis Suspect hypervolemia just from liver cirrhosis given distribution and SAAG. Investigation for alternative cause TTE with grade 2 diastolic dysfunction but otherwise unremarkable. Protein/Cr ratio normal. 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 I'd suggest we repeat these as outpatient and consider referral to endocrine if remains the same patter but will continue levothyroxine for now. -Continue Synthroid 50mcg po daily #Depression -Continue Celexa 20mg po qAM VTE Prophylaxis - Lovenox 40mg SQ HS (patient clearly less mobile than he has been making out) Disposition - continue on med/tele for ongoing diuresis, PT/OT recommending rehab placement although patient currently reluctant for this he has had multiple falls at home Admission and Anticipated Discharge Date Admission Date: April 17, 2025 Subjective Reports wanting to go back home but does not appear to be aware of his own limitations as currently requiring a lot of assistance to get around. He told me he was up walking around the last 2 days but this is not true from PT reports and nursing reports and he has mostly been in bed. Leg skin starting to wrinkle. Abdomen is distension has not returned. Physical Exam Respiratory: normal respiratory effort, lungs clear to auscultation Cardiovascular: Rate/Rhythm: regular rate and regular rhythm Heart Sounds: no murmur Extremities: + pedal edema (trace b/l improving with wrinkled skin) Gastrointestinal (Abdomen): Inspection/Auscultation: + abdomen distended (much improved); + abdomen abnormal to inspection Percussion/Palpation: abdomen soft; abdomen nontender, no guarding and abdomen not rigid Skin: chronic discoloration of right leg Results & Data Results & Data Vital Signs (Past 12 Hours) Vital Signs Temp Pulse Pulse Resp BP Pulse Ox O2 Del Method 04/21/25 14:21 72 04/21/25 11:42 36.5 C 69 20 168/72 H 96 Room Air 04/21/25 08:50 Room Air 04/21/25 08:09 36.4 C L 68 19 109/70 97 Room Air 04/21/25 07:00 69 04/21/25 02:45 37.0 C 73 18 98/61 L 96 Room Air PG Care Time/CCT Total # of Minutes Spent Total Time Spent with Patient: Total time spent is greater than 50% in coordination of care (as documented) at patient's floor/unit and/or counseling patient: Coding Level of Care Code 30785 SUB INP/OBS CARE 2/35MIN Diagnoses Anasarca R60.1 Cirrhosis K74.60; R18.8 Ascites presence: with ascites Hepatic cirrhosis type: unspecified hepatic cirrhosis Hypothyroidism E03.9 (2) Cirrhosis Ascites presence: with ascites Hepatic cirrhosis type: unspecified hepatic cirrhosis Qualified Code(s): K74.60 - Unspecified cirrhosis of liver; R18.8 - Other ascites
[2025-04-21] MEDS: ENOXAPARIN INJ 40 MG/0.4 ML SYR SQ SCH (20:02)
[2025-04-22 00:42] LABS: Hepatitis A Antibody IgM NON-REACTIVE (NON-REACTIVE); Hepatitis B Core Antibody IgM NON-REACTIVE (NON-REACTIVE)
--- NOTE | 2025-04-22 05:19 | Electrocardiogram Report ---
Test Reason : Blood Pressure : */* mmHG Vent. Rate : 72 BPM Atrial Rate : * BPM P-R Int : * ms QRS Dur : 74 ms QT Int : 462 ms P-R-T Axes : * 3 23 degrees QTcB Int : 505 ms Sinus rhythm Low voltage QRS Possible Lateral infarct , age undetermined Abnormal ECG When compared with ECG of 11-Apr-2025 12:37, Premature atrial complexes are no longer Present Confirmed by Ricardo Shukla ([id number]) on 04/22/2025 5:19:28 AM Referred By: REFERRED SELF Confirmed By: Ricardo Shukla
[2025-04-22 07:13] LABS: Alanine Aminotransferase 11.0 U/L (7-52); Albumin Globulin Ratio 0.8 (0.9-2); Albumin Level 2.3 gm/dl (3.4-5.0); Alkaline Phosphatase 89.0 U/L (34-104); Anion Gap 7.0 (3-11); Bilirubin,Total 1.2 mg/dl (0.2-1.0); Blood Urea Nitrogen 4.0 mg/dl (6-23); Calcium 8.2 mg/dl (8.6-10.3); Carbon Dioxide 29.0 mmol/L (21-32); Chloride 101.0 mmol/L (98-107); Creatinine Clr Calc Pharmacy 70.5 ml/min; Globulin 3.0 gm/dl (2.5-4.0); Glucose 75.0 mg/dl (70-99(Fasting)); Magnesium 2.1 mg/dl (1.7-2.4); Potassium 3.7 mmol/L (3.5-5.1); Sodium 137.0 mmol/L (136-145); Total Protein 5.3 gm/dl (6.0-8.3)
[2025-04-22] MEDS: ERYTHROMYCIN OP OINT 5 MG/GM 3.5 GM TUBE OP SCH (08:53)
--- NOTE | 2025-04-22 13:18 | Hospitalist Progress Note ---
Date of Service April 22, 2025 Assessment & Plan (1) Anasarca: (2) Cirrhosis: (3) Hypothyroidism: Plan 59yo male with history of liver cirrhosis presenting with worsening edema and ascites, difficulty with ambulation at home. #Ascites / anasarca / liver cirrhosis Suspect hypervolemia just from liver cirrhosis given distribution and SAAG. Investigation for alternative cause TTE with grade 2 diastolic dysfunction but otherwise unremarkable. Protein/Cr ratio normal. 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 I'd suggest we repeat these as outpatient and consider referral to endocrine if remains the same pattern but will continue levothyroxine for now. -Continue Synthroid 50mcg po daily #Depression -Continue Celexa 20mg po qAM VTE Prophylaxis - Lovenox 40mg SQ HS Disposition - continue on med/tele for ongoing diuresis, PT/OT recommending rehab placement although patient currently reluctant for this he has had multiple falls at home, ongoing admission as still needing significant diuresis Admission and Anticipated Discharge Date Admission Date: April 17, 2025 Subjective 2 assist just to get weighed per nursing. No concerns or questions from the patient. Physical Exam Respiratory: normal respiratory effort, lungs clear to auscultation Cardiovascular: Rate/Rhythm: regular rate and regular rhythm Heart Sounds: no murmur Extremities: + pedal edema (trace b/l improving with wrinkled skin) Gastrointestinal (Abdomen): Inspection/Auscultation: + abdomen distended (much improved) Percussion/Palpation: abdomen soft; abdomen nontender, no guarding and abdomen not rigid Skin: chronic discoloration of right leg Results & Data Results & Data Vital Signs (Past 12 Hours) Vital Signs Temp Pulse Pulse Resp BP BP Pulse Ox 04/22/25 11:37 36.7 C 67 16 128/80 96 04/22/25 09:00 04/22/25 07:55 36.6 C 71 18 109/71 95 04/22/25 06:51 72 04/22/25 02:52 36.7 C 65 17 109/72 97 O2 Del Method 04/22/25 11:37 Room Air 04/22/25 09:00 Room Air 04/22/25 07:55 Room Air 04/22/25 06:51 04/22/25 02:52 Room Air PG Care Time/CCT Total # of Minutes Spent Total Time Spent with Patient: Total time spent is greater than 50% in coordination of care (as documented) at patient's floor/unit and/or counseling patient: Coding Level of Care Code 24696 SUB INP/OBS CARE 235MIN Diagnoses Anasarca R60.1 Cirrhosis K74.60; R18.8 Ascites presence: with ascites Hepatic cirrhosis type: unspecified hepatic cirrhosis Hypothyroidism E03.9 (2) Cirrhosis Ascites presence: with ascites Hepatic cirrhosis type: unspecified hepatic cirrhosis Qualified Code(s): K74.60 - Unspecified cirrhosis of liver; R18.8 - Other ascites
[2025-04-22] MEDS: PHYTONADIONE 5 MG TAB PO STA (14:26)
[2025-04-23 06:43] LABS: Anion Gap 8.0 (3-11); Blood Urea Nitrogen 5.0 mg/dl (6-23); Calcium 8.3 mg/dl (8.6-10.3); Carbon Dioxide 29.0 mmol/L (21-32); Chloride 99.0 mmol/L (98-107); Creatinine Clr Calc Pharmacy 73.6 ml/min; Glucose 83.0 mg/dl (70-99(Fasting)); Potassium 3.4 mmol/L (3.5-5.1); Sodium 136.0 mmol/L (136-145)
[2025-04-23 07:02] LABS: INR 1.4 (0.9-1.1); Prothrombin Time 14.7 Seconds (9.0-12.0)
[2025-04-23] MEDS: POTASSIUM CHLORIDE CRTAB 20 MEQ TABCR PO ONE (08:13)
--- NOTE | 2025-04-23 16:48 | Hospitalist Progress Note ---
Date of Service April 23, 2025 Assessment & Plan (1) Anasarca: (2) Cirrhosis: (3) Hypothyroidism: (4) Severe protein-calorie malnutrition: Plan 59yo male with history of liver cirrhosis presenting with worsening edema and ascites, difficulty with ambulation at home. #Ascites / anasarca / liver cirrhosis Suspect hypervolemia just from liver cirrhosis given distribution and SAAG. Investigations for alternative cause; TTE with grade 2 diastolic dysfunction but otherwise unremarkable. Protein/Cr ratio normal. Paracentesis performed 04/18 with significant relief from the patient 4.8 L, required albumin s/p paracentesis but now off carvedilol higher BP allowing for increased diuresis AFP negative Continue spironolactone 100mg QAM and Lasix 40mg IV BID Strict I&Os; Net negative 1850ml last 24 hours Please do daily standing weights if possible - 81 -> 73.1 kg Not clear what his dry weight is to aim for, so will continue diuresis until negative balance is negligible, BP or Cr are effected Planning on following up with Noel bowen as outpatient but plan to try and get his fluid status more stable first #Severe protein-calorie malnutrition (POA) Dietary consulted and Boost drinks added MVI w/minerals added #Hypothyroidism -TSH and free T4 elevated - no prior labs for comparison but 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 I'd suggest we repeat these as outpatient and consider referral to endocrine if remains the same pattern but will continue levothyroxine for now. -Continue Synthroid 50mcg po daily #Depression -Continue Celexa 20mg po qAM VTE Prophylaxis - Lovenox 40mg SQ HS Disposition - continue on med/tele for ongoing diuresis, PT/OT recommending rehab placement which he appears to be more amenable today and referrals sent out yesterday Admission and Anticipated Discharge Date Admission Date: April 17, 2025 Subjective No acute concerns or questions from the patient. No change to management plan. Physical Exam Respiratory: normal respiratory effort, lungs clear to auscultation Cardiovascular: Rate/Rhythm: regular rate and regular rhythm Heart Sounds: no murmur Extremities: + pedal edema (trace b/l improving with wrinkled skin) Gastrointestinal (Abdomen): Inspection/Auscultation: + abdomen distended (much improved) Percussion/Palpation: abdomen soft; abdomen nontender, no guarding and abdomen not rigid Results & Data Results & Data Vital Signs (Past 12 Hours) Vital Signs Temp Pulse Pulse Resp BP Pulse Ox O2 Del Method 04/23/25 15:09 36.5 C 69 18 100/65 94 Room Air 04/23/25 14:00 67 04/23/25 11:06 36.8 C 66 19 105/68 100 Room Air 04/23/25 08:00 71 04/23/25 07:40 36.6 C 62 18 105/66 97 Room Air PG Care Time/CCT Total # of Minutes Spent Total Time Spent with Patient: Total time spent is greater than 50% in coordination of care (as documented) at patient's floor/unit and/or counseling patient: Coding Level of Care Code 80672 SUB INP/OBS CARE 2/35MIN Diagnoses Anasarca R60.1 Cirrhosis K74.60; R18.8 Ascites presence: with ascites Hepatic cirrhosis type: unspecified hepatic cirrhosis Hypothyroidism E03.9 Severe protein-calorie malnutrition E43 (2) Cirrhosis Ascites presence: with ascites Hepatic cirrhosis type: unspecified hepatic cirrhosis Qualified Code(s): K74.60 - Unspecified cirrhosis of liver; R18.8 - Other ascites
[2025-04-24 07:27] LABS: Anion Gap 9.0 (3-11); Blood Urea Nitrogen 6.0 mg/dl (6-23); Calcium 8.2 mg/dl (8.6-10.3); Carbon Dioxide 30.0 mmol/L (21-32); Chloride 97.0 mmol/L (98-107); Creatinine Clr Calc Pharmacy 73.2 ml/min; Glucose 81.0 mg/dl (70-99(Fasting)); Potassium 3.7 mmol/L (3.5-5.1); Sodium 136.0 mmol/L (136-145)
[2025-04-24] MEDS: CEROVITE ADV FORMULA TAB PO SCH (08:06)
--- NOTE | 2025-04-24 11:49 | Hospitalist Progress Note ---
Date of Service April 24, 2025 Assessment & Plan (1) Anasarca: (2) Cirrhosis: (3) Hypothyroidism: (4) Severe protein-calorie malnutrition: Plan 59yo male with cirrhosis (2nd to etoh? 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 Volume status improved. PO intake remains very poor. #ascites / anasarca / cirrhosis (POA) - -volume status improving s/p paracentesis on 04/18 (4.8 L removed; transudative) -continues to diurese on IV lasix with aldactone -decompensated hypothyroidism could also be contributing to volume overload. -has grade 2 diastolic dysfunction - this could be a contributor -cont spironolactone 100mg QAM and Lasix 40mg IV BID with daily BMP -patient lives in [facility] - he wishes to establish care with [facility] in [place] for ongoing liver care -[facility] GI consulted to for consideration of EGD in light of severe anorexia, failure to thrive, etc. -add PPI in the event he has gastritis, etc. -eventually needs non-selective BB added back (inderal vs coreg vs nadalol) #Severe protein-calorie malnutrition (POA) - -ongoing anorexia -appreciate ms access database developer consult & recs -cont MVI -consider CT chest in light of LLL infiltrate - is this pneumonia? cancer? other? -in light of recent conjunctivitis check COVID/flu/rsv #Hypothyroidism - -TSH is 14.5 -FT4 is mildly elevated -in setting of his illness would not change his synthroid dose at this time -simply repeat TFTs in 4-6 weeks as outpatient -Continue Synthroid 50mcg po daily #Depression - -Continue Celexa 20mg po qAM #abnormal CXR - -effusions vs consolidation vs both on cxr today -consider dedicated chest CT for more information #?seizure d/o - -cont keppra 750mg BID #h/o strokes - -really should be on daily asa 81mg -should try to resume statin as well VTE Prophylaxis - Lovenox 40mg SQ HS Disposition - PT/OT recommending rehab placement Admission and Anticipated Discharge Date Admission Date: April 17, 2025 Subjective tele overnight wnl patient lying in bed he reports ongoing poor appetite this has been present for at least a month or longer just no interest in food feels weak patient reports prior strokes and was hospitalized at [facility] for such denies any dyspnea today last stool - 04/21 Review of Systems Review of Systems: gen - no fevers or chills cv - no cp, LE edema improved eyes - improving drainage L eye pulm - no cough GI - no abd pain or nausea; no frequent heartburn Physical Exam Physical Exam: gen - lying in bed, NAD neck - no JVD eyes - resolving conjunctivitis L eye mouth - MMM heart - RRR, s1 s2, no murmur lungs - decreased BS bases, about 1/3 up back; no rales; no wheezes abd - distended with ascites, BS+, no HSM, NT ext - 1+ edema b/l, pulses 2+ b/l feet neuro - no asterixis b/l Results & Data Results & Data Vital Signs (Past 12 Hours) Vital Signs Temp Pulse Pulse Resp BP BP Pulse Ox 04/24/25 11:33 36.4 C L 76 18 119/77 94 04/24/25 08:05 04/24/25 07:46 71 04/24/25 07:39 36.6 C 68 18 118/74 97 04/24/25 03:58 36.8 C 75 14 121/69 100 O2 Del Method 04/24/25 11:33 Room Air 04/24/25 08:05 Room Air 04/24/25 07:46 04/24/25 07:39 Room Air 04/24/25 03:58 Room Air Laboratory Results Laboratory Results - last 48 hr 04/24/25 04/24/25 06:09 Unknown Sodium 136 Potassium 3.7 Chloride 97 L Carbon Dioxide 30 Anion Gap 9 BUN 6 Creatinine 1.12 Est Cr Clr Drug Dosing 73.2 eGFR 76.15 BUN/Creatinine Ratio 5.4 L Glucose 81 Calcium 8.2 L SARS-CoV-2 (PCR) NEGATIVE Influenza Type A (PCR) Negative Influenza Type B (PCR) Negative RSV (RT-PCR) Negative Diagnostic Findings Chest X-Ray 04/24/25 11:48 SINGLE VIEW CHEST CLINICAL HISTORY: Pleural effusions. FINDINGS: An AP, portable, upright chest radiograph is compared to study dated 04/17/2025 and correlated with abdominal CT dated 04/11/2025. The examination is degraded by portable technique and apical lordotic positioning. An electronic d evice projects over the left chest wall. The heart is enlarged. There is prominence of the pulmonary vasculature. There are left larger than right pleural effusions with consolidation of the left lower lung. These are similar to previous. No pneumothorax is seen. The skeletal structures are osteopenic. There are chronic/healed bilateral rib fractures. IMPRESSION: 1. Cardiomegaly with prominence of the pulmonary vasculature. Correlate clinically for evidence of fluid overload/congestive change. 2. Left larger than right pleural effusions with consolidation of the left lower lung. This is similar to previous. ACT 112: Negative or not required by law. Electronically signed by: Juan Carlos José M.D. 04/24/2025 1:13 PM PG Care Time/CCT Total # of Minutes Spent Total Time Spent with Patient: Total time spent is greater than 50% in coordination of care (as documented) at patient's floor/unit and/or counseling patient: Coding Level of Care Code 49786 SUB INP/OBS CARE 2/35MIN Diagnoses Anasarca R60.1 Cirrhosis K74.60; R18.8 Ascites presence: with ascites Hepatic cirrhosis type: unspecified hepatic cirrhosis Hypothyroidism E03.9 Severe protein-calorie malnutrition E43 (2) Cirrhosis Ascites presence: with ascites Hepatic cirrhosis type: unspecified hepatic cirrhosis Qualified Code(s): K74.60 - Unspecified cirrhosis of liver; R18.8 - Other ascites
--- NOTE | 2025-04-24 12:52 | Gastrointestinal Consultation ---
Date of Consultation April 24, 2025 Assessment & Plan (1) Anasarca: (2) Cirrhosis: Plan 60yowm with h/o Cirrhosis, hypothyroidism is seen today for anorexia and cirrhosis. He reports that cirrhosis was diagnosed 1 year ago at [facility], reportedly alcoholic which he now quit 3-4 months ago. Since returning to hospital on 04/17/25 he had had 4.8L paracentesis and diuresed 20# from 173 to 153# on Lasix 40mg/day and Spironolactone 100mg/day. Notable labs include renal chemistries stable. Na 136, INR 1.4, MELD Na 13. Plt 129 INR 1.4 T-bili 1.2, AST 33 ALT 11 Alk Phos 89. Liver US 04/17/25. Enlarged liver with increased parenchymal echogenicity and lobulated margins. The gallbladder wall appears mildly prominent, likely reactionary to ascites. An isoechoic area is identified in the gallbladder lumen on image #42/49, likely representing slu dge. Free fluid with faint echoes. (1) Recently diagnosed Cirrhosis. Anasarca. - Thought to be alcoholic. Checked with [facility]. Scheduled as a new patient. - MELD 13. - Recommend high protein, low salt diet. - Recommend transitioning from IV Furosemide to Furosemide 40mg BID and Spironolactone 100mg/day to prevent over-diuresis and see if this controls anasarca adequately. - Continue to monitor electrolytes and daily weights. - Acute hepatitis serologies and AFP were negative. Ferritin 1912. Ordered labs for further evaluation of other sources of cirrhosis - Iron panel, Ce ruloplasmin, A1AT,, BRAD, ASMA. - Upon discharge would recommend [id number] US/AFP for HCC surveillance and EGD for Varices screening. Supervising Physician Co-Signing Physician Notes I personally saw and examined the patient. I have reviewed the chart and agree with the documentation provided by the MACHINE SETTER including discussion about the assessment, treatment and plan. Briefly, 60yowm with h/o Cirrhosis, hypothyroidism is seen today for anorexia and cirrhosis. He reports that cirrhosis was diagnosed 1 year ago at [facility], reportedly alcoholic which he now quit 3-4 months ago. Since returning to hospital on 04/17/25 he had had 4.8L paracentesis and diuresed 20# from 173 to 153# on Lasix 40mg/day and Spironolactone 100mg/day. Notable labs include renal chemistries stable. Na 136, INR 1.4, MELD Na 13. Plt 129 at this point he has decompensated cirrhosis complicated by ascites. He is already come down in 20 pounds of weight with Lasix and Aldactone. He can be switched to Lasix 40 p.o. twice daily with Aldactone 100 daily. He will need an EGD and as long as he is eating we can do this outpatient to screen for varices. His ultrasound is negative for HCC. I told him to stay on a higher protein and a 2000 mg or less sodium diet. In the meantime we will send off his hepatitis serologies BRAD smooth muscle antibody and iron studies. His ferritin was elevated but we will get a saturation to see if this was just an acute phase reactant. History of Present Illness Reason for Consultation: Cirrhosis and Anorexia Attending Physician: Tyrese Guzman MD History of Present Illness 59-year-old male who presented to [facility] ER On 04/17/25 with Anasarca [facility] Work up reviewed. Labs showed no significant leukocytosis or anemia. BMP with mild hypokalemia 3.4. LFTs bilirubin was unremarkable. Troponin was negative. BNP elevated at 115. Lipase was normal. UA was clean. Patient was given IV Lasix. Chest x-ray consistent with pulmonary edema and pleural effusions. CT of the head was negative. Patient was admitted for further treatment. Outpatient medications (pertinent) Carvedilol 6.25 BID and Lasix 20mg/day. TTE with grade 2 diastolic dysfunction but otherwise unremarkable. Protein/Cr ratio normal. Paracentesis performed 04/18 with significant relief from the patient 4.8 L, required albumin s/p paracentesis but now off carvedilol higher BP allowing for increased diuresis Lasix 40mg IV BID, spironolactone 50mg -> increased to 100mg. Admission weight 178#, now down to 158#. We were consulted for anorexia and cirrhosis. He reports that this has been managed outpatient by [facility]. He was told his liver disease was from his alcohol which he quit 3-4 months ago. He states he's never had an EGD or colonoscopy. He denies ever having an episode of encephalopathy or SBP. No known issues with bleeding. He denies any dysphagia, abdominal pain, N/V/D, melena or hematochezia. BMs are 1x/day. Yesterdays was loose and brown. Family history - No Liver disease. No celiac, IBD or CRC. Social History - Chewing tobacco recently quit. Alcohol quit 3-4 months ago. No drug use. No NSAID use. Surgical History - Pertinent Diagnostics Na 136 BUN 6 Cr 1.12 Plt 129 INR 1.4 Albumin 3.3 T-bili 1.2 AST 33 ALT 11 Alk Phos 89 MELD Na- 13 Alpha Fetoprotein - 2.1 Hepatits serologies negative. 04/2025. Liver US 04/17/25 IMPRESSION: Enlarged liver with increased parenchymal echogenicity and lobulated margins. Free fluid with faint echoes. The possibility of chronic liver disease cannot be ruled out. Needs clinical and laboratory correlation. The gallbladder wall appears mildly prominent, likely reactionary to ascites. An isoechoic area is identified in the gallbladder lumen on image #42/49, likely representing sludge. CT abd/pelvis 04/11/25 FINDINGS: Moderate to large layering pleural effusions with dependent bibasilar consolidations/atelectasis. Mild intralobular septal thickening suggestive of pulmonary edema. No pneumatosis or pneumoperitoneum. Spleen measures 12.97 m in length. Unremarkable pancreas and adrenal glands. Distended gallbladder with cholelithiasis. No CT evidence of acute cholecystitis. Cirrhotic liver with probable underlying hepatic steatosis. No definite liver mass identified. Nonspecific borderline enlarged gastrohepatic lymph nodes. Subcentimeter hypodensities of the left kidney too small to characterize, likely cysts. Urinary bladder wall thickening with partial distention. Unremarkable prostate. Atherosclerosis of the aorta without aneurysm. No lymphadenopathy. Moderate volume abdominal pelvic ascites. Recanalization of the umbilical vein. Small duodenal diverticula. No small bowel obstruction. Colonic diverticulosis without acute diverticulitis. Normal appendix. Anasarca. Degenerative changes of the spine, pelvis and hips. Age-indeterminate likely chronic thoracolumbar compression deformities. Lumbar levoscoliosis. IMPRESSION: 1. No bowel obstruction or bowel wall thickening. 2. Cirrhosis with stigmata of portal venous hypertension including splenomegaly with ascites. 3. Volume overload with pleural effusions, interstitial pulmonary edema and anasarca. 4. Cholelithiasis. 5. Colonic diverticulosis. Allergies Allergy/AdvReac Type Severity Reaction Status Date / Time No Known Allergies Allergy Unverified 04/11/25 15:56 Home Medications Medication Instructions Recorded Confirmed Type carvedilol 6.25 mg tablet 6.25 mg PO BID 04/11/25 04/17/25 History citalopram 20 mg tablet 20 mg PO QAM 04/11/25 04/17/25 History eszopiclone 1 mg tablet (Lunesta) 1 mg PO HS 04/11/25 04/17/25 History furosemide 20 mg tablet 20 mg PO QAM 04/11/25 04/17/25 History levetiracetam 750 mg tablet 750 mg PO BID 04/11/25 04/17/25 History levothyroxine 50 mcg tablet 50 mcg PO DAILYBB 04/11/25 04/17/25 History potassium chloride 20 mEq 20 meq PO QAM 04/11/25 04/17/25 History tablet,extended release(part/cryst) rosuvastatin 40 mg tablet 40 mg PO PM 04/11/25 04/17/25 History Patient History Social History Smoking Status: Former smoker Second Hand Exposure: No; Do You Dip or Chew Tobacco: No; Tobacco Cessation Education Requested by Patient: No Hx Alcohol Use: Yes Alcohol type: beer Hx Substance Use: No Preferred Language: Russian Communication Ability: Effective Vendor Management Consultant Required: No Beliefs That Will Affect Care: None Current Living Situation: Family Current Living Situation Comment: lives at home w/ Other Information That Helps Us Care for You: No Feels Safe at Home: Yes Safety Concerns: Feels Safe At This Time Assistive Devices: Walker Review of Systems Review of Systems: See HPI Physical Exam Physical Exam: Constitutional: NAD. Alert. Answering questions appropriately. Respiratory: Breathing is even, non-labored. Lungs ross are clear to auscultation anteriorly. Cardiovascular: Regular Rate and Rhythm, no murmurs, rubs or gallops appreciated. Gastrointestinal (Abdomen): Normoactive bowel sounds x4, soft, non-distended, non-tender. Musculoskeletal: Lying in bed comfortably. No peripheral edema. Results & Data Vital Signs (Past 12 Hours) Vital Signs Temp Pulse Pulse Resp BP BP Pulse Ox 04/24/25 11:33 97.5 F L 76 18 119/77 94 04/24/25 08:05 04/24/25 07:46 71 04/24/25 07:39 97.9 F 68 18 118/74 97 04/24/25 03:58 98.2 F 75 14 121/69 100 O2 Del Method 04/24/25 11:33 Room Air 04/24/25 08:05 Room Air 04/24/25 07:46 04/24/25 07:39 Room Air 04/24/25 03:58 Room Air PG Care Time/CCT Total # of Minutes Spent Total Time Spent with Patient: Total time spent is greater than 50% in coordination of care (as documented) at patient's floor/unit and/or counseling patient: Coding Level of Care Code 38440 IN/OBS CONSULT LVL 3,45M Diagnoses Anasarca R60.1 Cirrhosis K74.60; R18.8 Ascites presence: with ascites Hepatic cirrhosis type: unspecified hepatic cirrhosis (2) Cirrhosis Ascites presence: with ascites Hepatic cirrhosis type: unspecified hepatic cirrhosis Qualified Code(s): K74.60 - Unspecified cirrhosis of liver; R18.8 - Other ascites
--- NOTE | 2025-04-24 13:14 | XRay Report ---
SINGLE VIEW CHEST CLINICAL HISTORY: Pleural effusions. FINDINGS: An AP, portable, upright chest radiograph is compared to study dated 04/17/2025 and correla funmilayo with abdominal CT dated 04/11/2025. The examination is degraded by portable technique and apical l ordotic positioning. An electronic device projects over the left chest wall. The heart is enlarged. T here is prominence of the pulmonary vasculature. There are left larger than right pleural effusions w ith consolidation of the left lower lung. These are similar to previous. No pneumothorax is seen. The skeletal structures are osteopenic. There are chronic/healed bilateral rib fractures. IMPRESSION: 1. Cardiomegaly with prominence of the pulmonary vasculature. Correlate clinically for evidence of fl uid overload/congestive change. 2. Left larger than right pleural effusions with consolidation of the left lower lung. This is simila r to previous. ACT 112: Negative or not required by law. Electronically signed by: Juan Carlos José M.D. 04/24/2025 1:13 PM
[2025-04-24 13:40] LABS: Influenza A virus by PCR Negative (Neg); Influenza B virus by PCR Negative (Neg); SARS CoV2 RNA(COVID-19) Ceph NEGATIVE (Negative)
[2025-04-24 16:00] LABS: Iron 131 mcg/dl (35-175); Transferrin < 95 mg/dl (200-360)
[2025-04-24] MEDS: ONDANSETRON INJ 2 MG/ML 2 ML VIAL IV PRN (22:50)
[2025-04-25 05:08] LABS: Hematocrit (blood only) 36.3 % (42.0-52.0); Hemoglobin 12.5 g/dl (14.0-18.0); Mean Corpuscular Hemoglobin 29.3 pg (25.0-34.0); Mean Corpuscular Volume 85.0 fL (80.0-100.0); Platelet Count 135 K/uL (130-400); RDW Standard Deviation 44.9 fL (36.4-46.3); Red Blood Count 4.27 M/uL (4.70-6.10); White Blood Count 6.22 K/ul (4.8-10.8)
[2025-04-25 05:24] LABS: Anion Gap 8.0 (3-11); Blood Urea Nitrogen 7.0 mg/dl (6-23); Calcium 8.2 mg/dl (8.6-10.3); Carbon Dioxide 28.0 mmol/L (21-32); Chloride 99.0 mmol/L (98-107); Creatinine Clr Calc Pharmacy 70.7 ml/min; Glucose 100.0 mg/dl (70-99(Fasting)); Magnesium 2.0 mg/dl (1.7-2.4); Potassium 3.2 mmol/L (3.5-5.1); Sodium 135.0 mmol/L (136-145)
[2025-04-25] MEDS: POTASSIUM CHLORIDE CRTAB 20 MEQ TABCR PO SCH (08:58)
--- NOTE | 2025-04-25 12:10 | Gastroenterology Progress Note ---
Date of Service April 25, 2025 Assessment & Plan (1) Cirrhosis: (2) Anasarca: (3) Nausea and vomiting: Plan 60yowm with h/o Cirrhosis, hypothyroidism is seen today for anorexia and cirrhosis. He reports that [facility], reportedly alcoholic which he now quit 3-4 months ago. Since returning to hospital on 04/17/25 he had had 4.8L paracentesis and diuresed 20# from 173 to 153# on Lasix 40mg/day and Spironolactone 100mg/day. Notable labs include renal chemistries stable. Na 136, INR 1.4, MELD Na 13. Plt 129 INR 1.4 T-bili 1.2, AST 33 ALT 11 Alk Phos 89. Liver US 04/17/25. Enlarged liver with increased parenchymal echogenicity and lobulated margins. The gallbladder wall appears mildly prominent, likely reactionary to ascites. An isoechoic area is identified in the gallbladder lumen on image #42/49, likely representing sludge. Free fluid with faint echoes. (1) Recently diagnosed Cirrhosis. Anasarca. - Thought to be alcoholic. Checked with [facility]. Scheduled as a new patient. - MELD 13. - Recommend high protein, low salt diet. - Recommend transitioning from IV Furosemide to Furosemide 40mg BID and Spironolactone 100mg/day to prevent over-diuresis and see if this controls anasarca adequately. - Continue to monitor electrolytes and daily weights. - Acute hepatitis serologies and AFP were negative. Ferritin 1912. Transferrin < 75. Unable to calculate TIBC or Transferrin saturation. Ordered labs for further evaluation of other sources of cirrhosis - Ceruloplasmin, A1AT,, BRAD, ASMA. pending - Upon discharge would recommend [id number] US/AFP for HCC surveillance and EGD for Varices screening. (2) Nausea and Vomiting - Check LFTs given history of cholelithiasis. - Suspect a component of gastroparesis r/t his cirrhosis/ascites. - Continue to optimize ascites with diuretics. - Start trial of small frequent meals to see if this improves tolerance. - Continue supportive care with anti-emetics. - If symptoms progress could consider EGD but given current state of health would not be eager to proceed with EGD at this time. Admission and Anticipated Discharge Date Admission Date: April 17, 2025 Supervising Physician Co-Signing Physician Notes I personally saw and examined the patient. I have reviewed the chart and agree with the documentation provided by the LAST PULLER including discussion about the assessment, treatment and plan. Briefly, doing better except threw up his hamburger. He said he foot gets full quickly and got nauseous and it did not sit well with him. I suspect that this is mechanical compression from the ascites as well as some gastroparesis related to his cirrhosis. I asked him to take small frequent meals multiple with boost and Ensure. The hospitalist is getting a CAT scan which I think is reasonable to rule out occult issues. His diuresis is quite effective. He should continue a high-protein diet. GI will sign off. He needs an outpatient endoscopy unless he is not tolerating a diet. Subjective 59-year-old male who presented to [facility] ER On 04/17/25 with Anasarca. Patient seen today for 1 day follow up on GI rounds for Anasarca. (1) Cirrhosis with Anasarca/Ascites - - He remains on IV Lasix 40mg BID with Spironolactone 100mg/day. - Had 4.8L removed by paracentesis. Negative SBP. - Weights have dropped from 178# to 158#. Now up to 160# from 158# yesterday. - He notes anorexia and poor appetite. Last night he tried to have a hamburger which resulted from vomiting x 3. This was characterized as a food product. He declined his breakfast tray but did take his Boost protein shake and tolerating this. - He had a BM this morning which was well formed brown. - He denies any fevers, chills, abdominal pain, diarrhea, melena or hematochezia. Family history - No Liver disease. No celiac, IBD or CRC. Social History - Chewing tobacco recently quit. Alcohol quit 3-4 months ago. No drug use. No NSAID use. Pertinent Diagnostics Hgb 04/25/25 - 12.5 ( Up - 0.3) BMP K 3.2, Na 135, Cl 99, CO2 28, BUN 7, Cr 1.16, Glucose 100. 04/22/25 Albumin 3.3 T-bili 1.2 AST 33 ALT 11 Alk Phos 89 MELD Na-13 Alpha Fetoprotein - 2.1 Hepatitis serologies negative. 04/2025. Liver US 04/17/25 IMPRESSION: Enlarged liver with increased parenchymal echogenicity and lobulated margins. Free fluid with faint echoes. The possibility of chronic liver disease cannot be ruled out. Needs clinical and laboratory correlation. The gallbladder wall appears mildly prominent, likely reactionary to ascites. An isoechoic area is identified in the gallbladder lumen on image #42/49, likely representing sludge. CT abd/pelvis 04/11/25 FINDINGS: Moderate to large layering pleural effusions with dependent bibasilar consolidations/atelectasis. Mild intralobular septal thickening suggestive of pulmonary edema. No pneumatosis or pneumoperitoneum. Spleen measures 12.97 m in length. Unremarkable pancreas and adrenal glands. Distended gallbladder with cholelithiasis. No CT evidence of acute cholecystitis. Cirrhotic liver with probable underlying hepatic steatosis. No definite liver mass identified. Nonspecific borderline enlarged gastrohepatic lymph nodes. Subcentimeter hypodensities of the left kidney too small to characterize, likely cysts. Urinary bladder wall thickening with partial distention. Unremarkable prostate. Atherosclerosis of the aorta without aneurysm. No lymphadenopathy. Moderate volume abdominal pelvic ascites. Recanalization of the umbilical vein. Small duodenal diverticula. No small bowel obstruction. Colonic diverticulosis without acute diverticulitis. Normal appendix. Anasarca. Degenerative changes of the spine, pelvis and hips. Age-indeterminate likely chronic thoracolumbar compression deformities. Lumbar levoscoliosis. IMPRESSION: 1. No bowel obstruction or bowel wall thickening. 2. Cirrhosis with stigmata of portal venous hypertension including splenomegaly with ascites. 3. Volume overload with pleural effusions, interstitial pulmonary edema and anasarca. 4. Cholelithiasis. 5. Colonic diverticulosis. Review of Systems Review of Systems: See HPI Physical Exam Physical Exam: Constitutional: NAD. Alert. Answering questions appropriately. Respiratory: Breathing is even, non-labored. Lungs ross are clear to auscultation anteriorly. Cardiovascular: Regular Rate and Rhythm, no murmurs, rubs or gallops appreciated. Gastrointestinal (Abdomen): Normoactive bowel sounds x4, soft, ,moderate ascites. Musculoskeletal: Lying in bed comfortably. + Trace edema. Results & Data Results & Data Vital Signs (Past 12 Hours) Vital Signs Temp Pulse Pulse Resp BP Pulse Ox O2 Del Method 04/25/25 11:01 98.1 F 75 20 140/75 94 Room Air 04/25/25 09:23 Room Air 04/25/25 07:58 97.9 F 79 20 123/76 95 Room Air 04/25/25 07:11 80 04/25/25 02:56 98.1 F 70 20 121/80 95 Room Air PG Care Time/CCT Total # of Minutes Spent Total Time Spent with Patient: Total time spent is greater than 50% in coordination of care (as documented) at patient's floor/unit and/or counseling patient: Coding Level of Care Code 08750 SUB INP/OBS CARE 3/50MIN Diagnoses Cirrhosis K74.60; R18.8 Ascites presence: with ascites Hepatic cirrhosis type: unspecified hepatic cirrhosis Anasarca R60.1 Nausea and vomiting R11.2 (1) Cirrhosis Ascites presence: with ascites Hepatic cirrhosis type: unspecified hepatic cirrhosis Qualified Code(s): K74.60 - Unspecified cirrhosis of liver; R18.8 - Other ascites
--- NOTE | 2025-04-25 13:43 | Hospitalist Progress Note ---
Date of Service April 25, 2025 Assessment & Plan (1) Anasarca: (2) Cirrhosis: (3) Hypothyroidism: (4) Severe protein-calorie malnutrition: (5) Failure to thrive: (6) Anorexia: Plan 59yo male with cirrhosis (2nd to etoh? 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 Volume status improved. PO intake remains very poor. #failure to thrive / anorexia - -GI concerned that the ascites may be causing a mechanical effect on his stomach leading to his poor appetite & nausea/vomiting -in addition GI also concerned that he could have an element of gastroparesis -can't rule out an underlying malignancy contributing to his poor appetite & failure to thrive -can't rule out cholecystitis, etc. -will obtain repeat CT a/p with PO & IV contrast -if negative consider remeron? #ascites / anasarca / cirrhosis (POA) - -volume status improving s/p paracentesis on 04/18 (4.8 L removed; transudative) -continues to diurese on IV lasix with aldactone -decompensated hypothyroidism could also be contributing to volume overload. -has grade 2 diastolic dysfunction - this could be a contributor -cont spironolactone 100mg QAM and Lasix 40mg IV BID with daily BMP -patient lives in [facility] - he wishes to establish care with [facility] in [place] for ongoing liver care -[facility] [place] [facility] consulted to for consideration of EGD in light of severe anorexia, failure to thrive, etc. -added PPI in the event he has gastritis, etc. -GI to defer on inpatient EGD unless he fails to improve -eventually needs non-selective BB added back (inderal vs coreg vs nadalol) but defer at this time #Severe protein-calorie malnutrition (POA) - -ongoing anorexia -appreciate grain origination specialist consult & recs -cont MVI -consider CT chest in light of LLL infiltrate - is this pneumonia? cancer? other? -in light of recent conjunctivitis checked COVID/flu/rsv -- all negative #Hypothyroidism - -TSH is 14.5 -FT4 is mildly elevated -in setting of his illness would not change his synthroid dose at this time -simply repeat TFTs in 4-6 weeks as outpatient -Continue Synthroid 50mcg po daily #Depression - -Continue Celexa 20mg po qAM #abnormal CXR - -effusions vs consolidation vs both on cxr -consider dedicated chest CT for more information #?seizure d/o - -cont keppra 750mg BID #h/o strokes - -really should be on daily asa 81mg -should try to resume statin as well VTE Prophylaxis - Lovenox 40mg SQ HS Disposition - PT/OT recommending rehab placement but can't go to rehab unless PO intake improves left message for pt's this evening, 04/25 care d/w GI Admission and Anticipated Discharge Date Admission Date: April 17, 2025 Subjective tele overnight wnl still with NO appetite and no desire to eat he tried eating a portion of a hamburger last pm -- developed abd pain about 20 minutes later, then had emesis no emesis since feels weak denies dyspnea at rest Review of Systems Review of Systems: gen - no fevers or chills cv - no cp, no orthopnea pulm - no cough GI - had N/V/pain yesterday Physical Exam Physical Exam: gen - lying in bed, NAD, looks similar to yesterday neck - no JVD eyes - nearly resolved conjunctivitis L eye mouth - MMM heart - RRR, s1 s2, no murmur lungs - decreased BS bases, about 1/3 up back - no change; no rales; no wheezes abd - distended with ascites - no change; BS+, no HSM, NT ext - <1+ edema b/l, pulses 2+ b/l feet neuro - no asterixis b/l psych - restricted affect Results & Data Results & Data Vital Signs (Past 12 Hours) Vital Signs Temp Pulse Pulse Resp BP Pulse Ox O2 Del Method 04/25/25 11:01 36.7 C 75 20 140/75 94 Room Air 04/25/25 09:23 Room Air 04/25/25 07:58 36.6 C 79 20 123/76 95 Room Air 04/25/25 07:11 80 04/25/25 02:56 36.7 C 70 20 121/80 95 Room Air Laboratory Results Laboratory Results - last 24 hr 04/24/25 04/25/25 15:07 04:18 WBC 6.22 RBC 4.27 L Hgb 12.5 L Hct 36.3 L MCV 85.0 MCH 29.3 MCHC 34.4 RDW Std Deviation 44.9 RDW Coeff of Yoly 14.9 H Plt Count 135 MPV 9.3 L Sodium 135 L Potassium 3.2 L Chloride 99 Carbon Dioxide 28 Anion Gap 8 BUN 7 Creatinine 1.16 Est Cr Clr Drug Dosing 70.7 eGFR 73.01 BUN/Creatinine Ratio 6.0 L Glucose 100 H Calcium 8.2 L Magnesium 2.0 Iron 131 TIBC TNP Transferrin < 95 L Transferrin % Sat TNP [id number] Pending BRAD Screen Pending Anti-Smooth Muscle Ab Pending PG Care Time/CCT Total # of Minutes Spent Total Time Spent with Patient: Total time spent is greater than 50% in coordination of care (as documented) at patient's floor/unit and/or counseling patient: Coding Level of Care Code 74043 SUB INP/OBS CARE 3/50MIN Diagnoses Anasarca R60.1 Cirrhosis K74.60; R18.8 Ascites presence: with ascites Hepatic cirrhosis type: unspecified hepatic cirrhosis Hypothyroidism E03.9 Severe protein-calorie malnutrition E43 Failure to thrive Anorexia R63.0 (2) Cirrhosis Ascites presence: with ascites Hepatic cirrhosis type: unspecified hepatic cirrhosis Qualified Code(s): K74.60 - Unspecified cirrhosis of liver; R18.8 - Other ascites
[2025-04-25 15:18] LABS: Alanine Aminotransferase 11.0 U/L (7-52); Albumin Level 2.6 gm/dl (3.4-5.0); Alkaline Phosphatase 94.0 U/L (34-104); Bilirubin,Total 1.3 mg/dl (0.2-1.0); Total Protein 5.9 gm/dl (6.0-8.3)
[2025-04-25] MEDS: IPRATROPIUM BROMIDE NASAL SPRAY 0.06% 15ML NAE SCH (16:12)
[2025-04-25] MEDS: OPTIRAY 320 100ml IV ONE (18:12)
--- NOTE | 2025-04-25 19:49 | CT Scan Report ---
EXAMINATION: CT of the abdomen and pelvis performed with contrast TECHNIQUE: Helical CT images from the lung bases through the symphysis pubis were obtained with contrast. Coronal and sagittal reformatted images were generated at a workstation for further assessment. Dose reduction techniques were achieved by using automatic exposure control and/or adjustment of mA and/or kV according to patient size and/or use of iterative reconstruction technique. COMPARISON: 04/11/2025 HISTORY: Abdominal pain FINDINGS: Moderate layering pleural effusions with dependent bibasilar consolidations/atelectasis. No pneumatosis or pneumoperitoneum. Spleen measures 12.97 m in length. Unremarkable pancreas and adrenal glands. Distended gallbladder with cholelithiasis. No evidence of acute cholecystitis. Cirrhotic morphology of the liver. No definite liver mass identified. Nonspecific borderline enlarged gastrohepatic lymph nodes. Tiny left renal cysts. Urinary bladder wall thickening with partial distention. Unremarkable prostate. Atherosclerosis of the aorta without aneurysm. No lymphadenopathy. Moderate volume abdominal pelvic ascites. Recanalization of the umbilical vein. Small duodenal diverticula. No small bowel obstruction. Colonic diverticulosis without acute diverticulitis. Normal appendix. Anasarca. Degenerative changes of the spine, pelvis and hips. Age-indeterminate likely chronic thoracolumbar compression deformities. Lumbar IMPRESSION: No acute interval changes. Cirrhotic morphology of the liver, again with moderate ascites and moderate pleural effusions. Cholelithiasis. Electronically signed by Evert Zheng 04-25-2025 7:48 PM
[2025-04-26 07:25] LABS: Anion Gap 10.0 (3-11); Blood Urea Nitrogen 9.0 mg/dl (6-23); Calcium 8.3 mg/dl (8.6-10.3); Carbon Dioxide 26.0 mmol/L (21-32); Chloride 99.0 mmol/L (98-107); Creatinine Clr Calc Pharmacy 60.0 ml/min; Glucose 73.0 mg/dl (70-99(Fasting)); Potassium 4.3 mmol/L (3.5-5.1); Sodium 135.0 mmol/L (136-145)
[2025-04-26 08:13] LABS: Folate (Folic Acid),Ser orPlas 16.41 ng/ml (>5.38)
[2025-04-26 08:14] LABS: Vitamin B12 972.0 pg/ml (180-914)
[2025-04-26] MEDS: POTASSIUM CHLORIDE CRTAB 20 MEQ TABCR PO SCH (08:51)
--- NOTE | 2025-04-26 11:50 | Communication Note ---
Date of Service: April 26, 2025 Spoke with patient this morning in follow up of nausea and vomiting. He reports that he was tolerating a low fiber, low fat small meal diet better. CT scan did not reveal any acute disease. Therefore would continue with chronic cirrhosis management as noted in notes 04/25/25. GI signing off on case. Thank you for allowing us to participate in the care of this patient. Please call with any acute changes, questions or concerns.
[2025-04-26 16:07] LABS: Anti Nuclear Antibody Screen NEGATIVE (NEGATIVE)
[2025-04-26] MEDS: MIRTAZAPINE TAB 15 MG TAB PO SCH (20:59)
--- NOTE | 2025-04-26 21:48 | Hospitalist Progress Note ---
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 Volume status improved. PO intake remains very poor. #failure to thrive / anorexia - -GI concerned that the ascites may be causing a mechanical effect on his stomach leading to his poor appetite & nausea/vomiting -in addition GI also concerned that he could have an element of gastroparesis -repeat CT a/p with PO & IV contrast - no new pathology or obvious cancerous process -add remeron 7.5mg HS #ascites / anasarca / cirrhosis (POA) - -volume status improving s/p paracentesis on 04/18 (4.8 L removed; transudative) -continues to diurese on IV lasix with aldactone -decompensated hypothyroidism could also be contributing to volume overload. -has grade 2 diastolic dysfunction - this could be a contributor -cont spironolactone 100mg QAM and Lasix - but change lasix to daily dosing -patient lives in [facility] - he wishes to establish care with [facility] in [place] for ongoing liver care -[facility] [place] [facility] consulted to for consideration of EGD in light of severe anorexia, failure to thrive, etc. -added PPI in the event he has gastritis, etc. -GI to defer on inpatient EGD unless he fails to improve -eventually needs non-selective BB added back (inderal vs coreg vs nadalol) #Severe protein-calorie malnutrition (POA) - -ongoing anorexia -appreciate spring layer consult & recs -cont MVI -consider CT chest in light of LLL infiltrate - is this pneumonia? cancer? other? -in light of recent conjunctivitis checked COVID/flu/rsv -- all negative #Hypothyroidism - -TSH is 14.5 -FT4 is mildly elevated -in setting of his illness would not change his synthroid dose at this time -simply repeat TFTs in 4-6 weeks as outpatient -Continue Synthroid 50mcg po daily #Depression - -given his failure to thrive, anorexia, poor sleep, etc -- add remeron 7.5mg HS -lower Celexa to 10mg po qAM #abnormal CXR - -effusions vs consolidation vs both on cxr -consider dedicated chest CT for more information #?seizure d/o - -cont keppra 750mg BID #h/o strokes - -really should be on daily asa 81mg -should try to resume statin as well VTE Prophylaxis - Lovenox 40mg SQ HS Disposition - PT/OT recommending rehab placement but can't go to rehab unless PO intake improves left message for pt's 04/25 updated pt's at bedside 04/26 Admission and Anticipated Discharge Date Admission Date: April 17, 2025 Subjective patient reports he is "eating better" but appetite has been inconsistent today denies abd pain or N/V states abd swelling from ascites is improving no dyspnea left eye drainage improved tele wnl overnight at bedside during the visit she confirms he has been depressed for several months has difficulty sleeping - often taking hours to fall asleep Review of Systems Review of Systems: cv - no cp, no orthopnea pulm - no cough GI - no nausea/emesis Physical Exam Physical Exam: gen - lying in bed, NAD, awake/alert neck - no JVD mouth - MMM heart - RRR, s1 s2, no murmur lungs - decreased BS bases, no rales; no wheezes abd - distended with ascites but IMPROVING; BS+, no HSM, NT ext - no edema b/l, pulses 2+ b/l feet psych - restricted affect Results & Data Results & Data Vital Signs (Past 12 Hours) Vital Signs Temp Pulse Pulse Resp BP BP Pulse Ox 04/26/25 20:36 37.0 C 72 17 139/71 96 04/26/25 15:11 36.8 C 72 18 115/72 96 04/26/25 14:38 70 04/26/25 10:45 36.6 C 70 18 114/67 94 O2 Del Method 04/26/25 20:36 Room Air 04/26/25 15:11 Room Air 04/26/25 14:38 04/26/25 10:45 Room Air Laboratory Results Laboratory Results - last 24 hr 04/24/25 04/26/25 04/26/25 15:07 06:00 07:04 Sodium 135 L Potassium 4.3 D Chloride 99 Carbon Dioxide 26 Anion Gap 10 BUN 9 Creatinine 1.32 Est Cr Clr Drug Dosing 60.0 eGFR 62.52 BUN/Creatinine Ratio 6.8 L Glucose 73 Calcium 8.3 L [id number] 143 Whole Bld Vitamin B1 Pending Vitamin B6 Pending Vitamin B12 972 H Folate 16.41 BRAD Screen NEGATIVE Anti-Smooth Muscle Ab POSITIVE A PG Care Time/CCT Total # of Minutes Spent Total Time Spent with Patient: Total time spent is greater than 50% in coordination of care (as documented) at patient's floor/unit and/or counseling patient: Coding Level of Care Code 77224 SUB INP/OBS CARE 2/35MIN Diagnoses Anasarca R60.1 Cirrhosis K74.60; R18.8 Ascites presence: with ascites Hepatic cirrhosis type: unspecified hepatic cirrhosis Hypothyroidism E03.9 Severe protein-calorie malnutrition E43 Failure to thrive Anorexia R63.0 (2) Cirrhosis Ascites presence: with ascites Hepatic cirrhosis type: unspecified hepatic cirrhosis Qualified Code(s): K74.60 - Unspecified cirrhosis of liver; R18.8 - Other ascites
[2025-04-27 07:30] LABS: Anion Gap 9.0 (3-11); Blood Urea Nitrogen 9.0 mg/dl (6-23); Calcium 8.1 mg/dl (8.6-10.3); Carbon Dioxide 25.0 mmol/L (21-32); Chloride 101.0 mmol/L (98-107); Creatinine Clr Calc Pharmacy 60.9 ml/min; Glucose 66.0 mg/dl (70-99(Fasting)); Potassium 3.8 mmol/L (3.5-5.1); Sodium 135.0 mmol/L (136-145)
[2025-04-27] MEDS: FUROSEMIDE 40 MG/4 ML VIAL IV ONE (10:39)
[2025-04-27] MEDS: CITALOPRAM 20 MG TAB PO SCH (10:40)
--- NOTE | 2025-04-27 18:41 | Hospitalist Progress Note ---
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 Volume status improved. PO intake remains very poor. #failure to thrive / anorexia - -GI concerned that the ascites may be causing a mechanical effect on his stomach leading to his poor appetite & nausea/vomiting -in addition GI also concerned that he could have an element of gastroparesis -repeat CT a/p with PO & IV contrast - no new pathology or obvious cancerous process -added remeron 7.5mg HS #ascites / anasarca / cirrhosis (POA) - -volume status improving s/p paracentesis on 04/18 (4.8 L removed; transudative) -continues to diurese on IV lasix with aldactone -decompensated hypothyroidism could also be contributing to volume overload. -has grade 2 diastolic dysfunction - this could be a contributor -cont spironolactone 100mg QAM and Lasix - but change lasix to daily dosing (40mg IV daily) -patient lives in [facility] - he wishes to establish care with [facility] in [place] for ongoing liver care -[facility] [place] [facility] consulted to for consideration of EGD in light of severe anorexia, failure to thrive, etc. -added PPI in the event he has gastritis, etc. -GI to defer on inpatient EGD unless he fails to improve -eventually needs non-selective BB added back (inderal vs coreg vs nadalol) #Severe protein-calorie malnutrition (POA) - -ongoing anorexia -appreciate clerk rating consult & recs -cont MVI -consider CT chest in light of LLL infiltrate - is this pneumonia? cancer? other? -in light of recent conjunctivitis checked COVID/flu/rsv -- all negative -while awaiting B6 and B1 levels place on thiamine 200mg BID #Hypothyroidism - -TSH is 14.5 -FT4 is mildly elevated -in setting of his illness would not change his synthroid dose at this time -simply repeat TFTs in 4-6 weeks as outpatient -Continue Synthroid 50mcg po daily #Depression - -given his failure to thrive, anorexia, poor sleep, etc -- added remeron 7.5mg HS -lowered Celexa to 10mg po qAM - consider weaning off as it doesn't seem to be helping #abnormal CXR - -effusions vs consolidation vs both on cxr -consider dedicated chest CT for more information #?seizure d/o - -cont keppra 750mg BID #h/o strokes - -really should be on daily asa 81mg -should try to resume statin as well VTE Prophylaxis - Lovenox 40mg SQ HS Disposition - PT/OT recommending rehab placement but can't go to rehab unless PO intake improves left message for pt's 04/25 updated pt's at bedside 04/26 Admission and Anticipated Discharge Date Admission Date: April 17, 2025 Subjective no medical events overnight he reports eating better today his food tray was still in the room and I lifted up the cover - he only ate a few mashed potatoes; didn't eat anything else slept better last night no other acute issues Review of Systems Review of Systems: CV - no chest pain pulm - no dyspnea, no cough GI - no N/V Physical Exam Physical Exam: gen - lying in bed, NAD, awake/alert - looks similar to yesterday eyes - mild injection L eyelid and sclera, but no discharge neck - no JVD mouth - MMM heart - RRR, s1 s2, no murmur lungs - decreased BS bases, but improving airation; no rales; no wheezes abd - ascites IMPROVING; BS+, no HSM, NT ext - no edema b/l, pulses 2+ b/l feet psych - restricted affect Results & Data Results & Data Vital Signs (Past 12 Hours) Vital Signs Temp Pulse Pulse Resp BP Pulse Ox O2 Del Method 04/27/25 15:31 82 04/27/25 15:27 36.6 C 80 18 136/69 95 Room Air 04/27/25 12:40 36.4 C L 73 18 103/59 L 94 Room Air 04/27/25 08:14 36.5 C 70 16 111/64 95 Room Air 04/27/25 08:00 Room Air 04/27/25 07:51 73 Laboratory Results Laboratory Results - last 24 hr 04/27/25 05:47 Sodium 135 L Potassium 3.8 Chloride 101 Carbon Dioxide 25 Anion Gap 9 BUN 9 Creatinine 1.30 Est Cr Clr Drug Dosing 60.9 eGFR 63.68 BUN/Creatinine Ratio 6.9 L Glucose 66 L Calcium 8.1 L PG Care Time/CCT Total # of Minutes Spent Total Time Spent with Patient: Total time spent is greater than 50% in coordination of care (as documented) at patient's floor/unit and/or counseling patient: Coding Level of Care Code 94775 SUB INP/OBS CARE 2/35MIN Diagnoses Anasarca R60.1 Cirrhosis K74.60; R18.8 Ascites presence: with ascites Hepatic cirrhosis type: unspecified hepatic cirrhosis Hypothyroidism E03.9 Severe protein-calorie malnutrition E43 Failure to thrive Anorexia R63.0 (2) Cirrhosis Ascites presence: with ascites Hepatic cirrhosis type: unspecified hepatic cirrhosis Qualified Code(s): K74.60 - Unspecified cirrhosis of liver; R18.8 - Other ascites
[2025-04-28 09:19] LABS: Anion Gap 7.0 (3-11); Blood Urea Nitrogen 8.0 mg/dl (6-23); Calcium 8.6 mg/dl (8.6-10.3); Carbon Dioxide 30.0 mmol/L (21-32); Chloride 100.0 mmol/L (98-107); Creatinine Clr Calc Pharmacy 63.1 ml/min; Glucose 90.0 mg/dl (70-99(Fasting)); Magnesium 2.2 mg/dl (1.7-2.4); Potassium 3.6 mmol/L (3.5-5.1); Sodium 137.0 mmol/L (136-145)
[2025-04-28] MEDS: FUROSEMIDE 40 MG/4 ML VIAL IV ONE (11:02)
[2025-04-28] MEDS: THIAMINE HCL 100 MG TAB PO SCH (11:02)
[2025-04-28] MEDS: LACTULOSE SYRUP 20 GM/30 ML UDC PO SCH (11:02)
[2025-04-28 15:17] LABS: Hematocrit (blood only) 39.6 % (42.0-52.0); Hemoglobin 13.2 g/dl (14.0-18.0); Mean Corpuscular Hemoglobin 29.3 pg (25.0-34.0); Mean Corpuscular Volume 87.8 fL (80.0-100.0); Platelet Count 162 K/uL (130-400); RDW Standard Deviation 48.7 fL (36.4-46.3); Red Blood Count 4.51 M/uL (4.70-6.10); White Blood Count 5.29 K/ul (4.8-10.8)
[2025-04-28] MEDS: CIPROFLOXACIN HCL 0.3% OP SOLN 2.5 ML BTL OPL SCH (17:50)
--- NOTE | 2025-04-28 20:10 | Hospitalist Progress Note ---
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 Volume status improved. PO intake remains very poor. #failure to thrive / anorexia - -GI concerned that the ascites may be causing a mechanical effect on his stomach leading to his poor appetite & nausea/vomiting -in addition GI also concerned that he could have an element of gastroparesis -repeat CT a/p with PO & IV contrast - no new pathology or obvious cancerous process -added remeron 7.5mg HS; if no improvement in his appetite/sleep/mood consider increase to 15mg HS #ascites / anasarca / cirrhosis (POA) - -volume status improving s/p paracentesis on 04/18 (4.8 L removed; transudative) -continues to diurese on IV lasix with aldactone -decompensated hypothyroidism could also be contributing to volume overload. -has grade 2 diastolic dysfunction - this could be a contributor -cont spironolactone 100mg QAM and Lasix 40mg IV daily -recheck BMP am -patient lives in [facility] - he wishes to establish care with [facility] in [place] for ongoing liver care -[facility] [place] [facility] consulted to for consideration of EGD in light of severe anorexia, failure to thrive, etc. -added PPI in the event he has gastritis, etc. -GI to defer on inpatient EGD unless he fails to improve with appetite -cont non-selective BB with low-dose coreg 3.125mg BID #Severe protein-calorie malnutrition (POA) - -ongoing anorexia -appreciate fire code inspector consult & recs -cont MVI -consider CT chest in light of LLL infiltrate - is this pneumonia? cancer? other? -in light of recent conjunctivitis checked COVID/flu/rsv -- all negative -while awaiting B6 and B1 levels place on thiamine 200mg BID #Hypothyroidism - -TSH is 14.5 -FT4 is mildly elevated -in setting of his illness would not change his synthroid dose at this time -simply repeat TFTs in 4-6 weeks as outpatient -Continue Synthroid 50mcg po daily #Depression - -given his failure to thrive, anorexia, poor sleep, etc -- added remeron 7.5mg HS -consider increase to 15mg HS if appetite does not improve with 7.5mg dose -lowered Celexa to 10mg po qAM - consider weaning off as it doesn't seem to be helping #abnormal CXR - -effusions vs consolidation vs both on cxr -consider dedicated chest CT for more information #?seizure d/o - -cont keppra 750mg BID #h/o strokes - -really should be on daily asa 81mg -should try to resume statin as well #left eye conjunctivitis - -mild, ongoing -d/c erythromycin eye ointment -change to cipro eye drops -- 1 drop QID L eye VTE Prophylaxis - Lovenox 40mg SQ HS Disposition - PT/OT recommending rehab placement but can't go to rehab unless PO intake improves left message for pt's 04/25 updated pt's at bedside 04/26 updated pt's by phone 04/28 d/c tele move to med/surg Admission and Anticipated Discharge Date Admission Date: April 17, 2025 Subjective no events tele wnl overnight denies pain any location appetite marginally better sleeping better at night left eye still red been red "for about 5 days" to his recollection (but has been on erythromycin for 7 days thus the 5 day estimate is not correct) Review of Systems Review of Systems: CV - no chest pain pulm - no dyspnea GI - no abd pain or N/V; last stool 04/25 Physical Exam Physical Exam: gen - lying in bed, NAD, awake/alert - looks very similar to yesterday eyes - mild-moderate injection L eyelid and sclera, but no purulent discharge neck - no JVD mouth - MMM heart - RRR, s1 s2, no murmur lungs - decreased BS bases, but improving airation; no rales; no wheezes abd - ascites IMPROVING; BS+, no HSM, NT ext - no edema b/l, pulses 2+ b/l feet psych - restricted affect but pleasant Results & Data Results & Data Vital Signs (Past 12 Hours) Vital Signs Temp Pulse Pulse Resp BP Pulse Ox O2 Del Method 04/28/25 19:57 Room Air 04/28/25 16:14 36.5 C 04/28/25 15:46 36.3 C L 80 18 109/61 93 Room Air 04/28/25 15:25 90 04/28/25 11:45 36.3 C L 93 H 18 138/74 92 Room Air Laboratory Results Laboratory Results - last 24 hr 04/28/25 04/28/25 08:29 08:33 WBC 5.29 RBC 4.51 L Hgb 13.2 L Hct 39.6 L MCV 87.8 MCH 29.3 MCHC 33.3 RDW Std Deviation 48.7 H RDW Coeff of Yoly 15.9 H Plt Count 162 MPV 10.2 Sodium 137 Potassium 3.6 Chloride 100 Carbon Dioxide 30 Anion Gap 7 BUN 8 Creatinine 1.29 Est Cr Clr Drug Dosing 63.1 eGFR 64.27 BUN/Creatinine Ratio 6.2 L Glucose 90 Calcium 8.6 Magnesium 2.2 PG Care Time/CCT Total # of Minutes Spent Total Time Spent with Patient: Total time spent is greater than 50% in coordination of care (as documented) at patient's floor/unit and/or counseling patient: Coding Level of Care Code 38154 SUB INP/OBS CARE 2/35MIN Diagnoses Anasarca R60.1 Cirrhosis K74.60; R18.8 Ascites presence: with ascites Hepatic cirrhosis type: unspecified hepatic cirrhosis Hypothyroidism E03.9 Severe protein-calorie malnutrition E43 Failure to thrive Anorexia R63.0 (2) Cirrhosis Ascites presence: with ascites Hepatic cirrhosis type: unspecified hepatic cirrhosis Qualified Code(s): K74.60 - Unspecified cirrhosis of liver; R18.8 - Other ascites
[2025-04-29] MEDS: FUROSEMIDE 40 MG/4 ML VIAL IV ONE (11:04)
[2025-04-29 11:09] LABS: Anion Gap 5.0 (3-11); Blood Urea Nitrogen 8.0 mg/dl (6-23); Calcium 8.5 mg/dl (8.6-10.3); Carbon Dioxide 29.0 mmol/L (21-32); Chloride 103.0 mmol/L (98-107); Creatinine Clr Calc Pharmacy 64.6 ml/min; Glucose 97.0 mg/dl (70-99(Fasting)); Potassium 3.9 mmol/L (3.5-5.1); Sodium 137.0 mmol/L (136-145)
--- NOTE | 2025-04-29 19:06 | Hospitalist Progress Note ---
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 Volume status improved. PO intake remains very poor. #failure to thrive / anorexia - seems to be slowly improving - -GI concerned that the ascites may be causing a mechanical effect on his stomach leading to his poor appetite & nausea/vomiting -in addition GI also concerned that he could have an element of gastroparesis -repeat CT a/p with PO & IV contrast - no new pathology or obvious cancerous process -added remeron 7.5mg HS; if no improvement in his appetite/sleep/mood consider increase to 15mg HS but the lower dose seems to be finally working #ascites / anasarca / cirrhosis (POA) - improved volume status - -volume status improving s/p paracentesis on 04/18 (4.8 L removed; transudative) -continues to diurese on IV lasix with aldactone -decompensated hypothyroidism could also be contributing to volume overload. -has grade 2 diastolic dysfunction - this could be a contributor -cont spironolactone 100mg QAM and Lasix 40mg IV daily -recheck BMP am -patient lives in [facility] - he wishes to establish care with [facility] in [place] for ongoing liver care -[facility] [place] GI consulted to for consideration of EGD in light of severe anorexia, failure to thrive, etc. -added PPI in the event he has gastritis, etc. -GI to defer on inpatient EGD unless he fails to improve with appetite -cont non-selective BB with low-dose coreg 3.125mg BID #Severe protein-calorie malnutrition (POA) - -ongoing anorexia -appreciate correctional maintenance technician consult & recs -cont MVI -consider CT chest in light of LLL infiltrate - is this pneumonia? cancer? other? -in light of recent conjunctivitis checked COVID/flu/rsv -- all negative -while awaiting B6 and B1 levels place on thiamine 200mg BID #Hypothyroidism - -TSH is 14.5 -FT4 is mildly elevated -in setting of his illness would not change his synthroid dose at this time -simply repeat TFTs in 4-6 weeks as outpatient -Continue Synthroid 50mcg po daily #Depression - -given his failure to thrive, anorexia, poor sleep, etc -- added remeron 7.5mg HS -consider increase to 15mg HS if appetite does not improve with 7.5mg dose -lowered Celexa to 10mg po qAM - consider weaning off as it doesn't seem to be helping #abnormal CXR - -effusions vs consolidation vs both on cxr -consider dedicated chest CT for more information #?seizure d/o - -cont keppra 750mg BID #h/o strokes - -really should be on daily asa 81mg -should try to resume statin as well #left eye conjunctivitis - improving - -mild -cont cipro eye drops -- 1 drop QID L eye x 5-7 days VTE Prophylaxis - Lovenox 40mg SQ HS Disposition - PT/OT recommending rehab placement hopefully we can get him there in the next couple of days since failure to thrive & appetite have improved left message for pt's 04/25 updated pt's at bedside 04/26 updated pt's by phone 04/28 Admission and Anticipated Discharge Date Admission Date: April 17, 2025 Subjective feels "really good" today eating better - per nursing flowsheets ate 75% of lunch sleeping well L eye feeling better during the visit his called into the room and he asked her to bring certain foods from home denies any new complaints Review of Systems Review of Systems: CV - no chest pain pulm - no dyspnea GI - abd distension improved Physical Exam Physical Exam: gen - lying in bed, NAD, awake/alert - best he has looked all week eyes - injection L eyelid and sclera MUCH better neck - no JVD mouth - MMM heart - RRR, s1 s2, no murmur lungs - decreased BS bases (L>R); no rales; no wheezes abd - ascites again IMPROVING; BS+, no HSM, NT ext - no edema b/l, pulses 2+ b/l feet psych - affect more full Results & Data Results & Data Vital Signs (Past 12 Hours) Vital Signs Temp Pulse Resp BP Pulse Ox O2 Del Method 04/29/25 15:27 36.6 C 72 18 116/54 L 100 Room Air 04/29/25 07:17 36.6 C 73 19 112/66 95 Room Air Laboratory Results Laboratory Results - last 48 hr 04/24/25 04/28/25 04/29/25 15:07 08:33 10:20 WBC 5.29 RBC 4.51 L Hgb 13.2 L Hct 39.6 L MCV 87.8 MCH 29.3 MCHC 33.3 RDW Std Deviation 48.7 H RDW Coeff of Yoly 15.9 H Plt Count 162 MPV 10.2 Sodium 137 Potassium 3.9 Chloride 103 Carbon Dioxide 29 Anion Gap 5 BUN 8 Creatinine 1.26 Est Cr Clr Drug Dosing 64.6 eGFR 66.11 BUN/Creatinine Ratio 6.3 L Glucose 97 Calcium 8.5 L [id number] 143 BRAD Screen NEGATIVE Smooth Muscle Ab Titer 1:40 H Anti-Smooth Muscle Ab POSITIVE A PG Care Time/CCT Total # of Minutes Spent Total Time Spent with Patient: Total time spent is greater than 50% in coordination of care (as documented) at patient's floor/unit and/or counseling patient: Coding Level of Care Code 31995 SUB INP/OBS CARE 07/28MIN Diagnoses Anasarca R60.1 Cirrhosis K74.60; R18.8 Ascites presence: with ascites Hepatic cirrhosis type: unspecified hepatic cirrhosis Hypothyroidism E03.9 Severe protein-calorie malnutrition E43 Failure to thrive Anorexia R63.0 (2) Cirrhosis Ascites presence: with ascites Hepatic cirrhosis type: unspecified hepatic cirrhosis Qualified Code(s): K74.60 - Unspecified cirrhosis of liver; R18.8 - Other ascites
[2025-04-30 08:41] LABS: Anion Gap 6.0 (3-11); Blood Urea Nitrogen 8.0 mg/dl (6-23); Calcium 8.6 mg/dl (8.6-10.3); Carbon Dioxide 29.0 mmol/L (21-32); Chloride 103.0 mmol/L (98-107); Creatinine Clr Calc Pharmacy 59.0 ml/min; Glucose 105.0 mg/dl (70-99(Fasting)); Potassium 3.5 mmol/L (3.5-5.1); Sodium 138.0 mmol/L (136-145)
[2025-04-30] MEDS: FUROSEMIDE 40 MG/4 ML VIAL IV ONE (14:12)
--- NOTE | 2025-04-30 20:37 | Hospitalist Progress Note ---
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 Volume status improved. PO intake remains very poor. #failure to thrive / anorexia - improving - -GI concerned that the ascites was causing a mechanical effect on his stomach leading to his poor appetite & nausea/vomiting -in addition GI also concerned that he could have an element of gastroparesis -repeat CT a/p with PO & IV contrast - no new pathology or obvious cancerous process -added remeron 7.5mg HS; tolerating such; and sleep/eating/mood improving #ascites / anasarca / cirrhosis (POA) - improved volume status - -volume status improving s/p paracentesis on 04/18 (4.8 L removed; transudative) -continues to diurese on lasix with aldactone -decompensated hypothyroidism could also be contributing to volume overload. -has grade 2 diastolic dysfunction - this could be a contributor -cont spironolactone 100mg QAM -change Lasix 40mg IV daily to PO lasix 40mg daily -BMP remains wnl -patient lives in [facility] - he wishes to establish care with [facility] in [place] for ongoing liver care -[facility] [place] GI consulted to for consideration of EGD in light of severe anorexia, failure to thrive, etc. -added PPI in the event he has gastritis, etc. -GI deferred on inpatient EGD; recommends such be done in the outpatient setting -cont non-selective BB with low-dose coreg 3.125mg BID #Severe protein-calorie malnutrition (POA) - -improved appetite with remeron -appreciate application support consult & recs -cont MVI -while awaiting B6 and B1 levels placed on thiamine 200mg BID #Hypothyroidism - -TSH is 14.5 -FT4 is mildly elevated -in setting of his illness would not change his synthroid dose at this time -simply repeat TFTs in 4-6 weeks as outpatient -Continue Synthroid 50mcg po daily #Depression - -given his failure to thrive, anorexia, poor sleep, etc -- added remeron 7.5mg HS -lowered Celexa to 10mg po qAM - consider weaning off as it doesn't seem to be helping #abnormal CXR - -effusions vs consolidation vs both on cxr -consider dedicated chest CT #?seizure d/o - -cont keppra 750mg BID #h/o strokes - -really should be on daily asa 81mg -should try to resume statin as well #left eye conjunctivitis - improving/resolving - -mild -cont cipro eye drops -- 1 drop QID L eye x 5-7 days VTE Prophylaxis - Lovenox 40mg SQ HS Disposition - PT/OT recommending rehab placement referrals in process left message for pt's 04/25 updated pt's at bedside 04/26 updated pt's by phone 04/28 Admission and Anticipated Discharge Date Admission Date: April 17, 2025 Subjective feels great good spirits sleeping well eating is MUCH better - 75% all meals abd distension from ascites improving left eye conjunctivitis nearly resolved Review of Systems Review of Systems: CV - no chest pain pulm - no dyspnea GI - no N/V/abd pain Physical Exam Physical Exam: gen - lying in bed, NAD, awake/alert, smiling/in good spirits eyes - injection L eyelid and sclera resolved neck - no JVD mouth - MMM heart - RRR, s1 s2, no murmur lungs - minimally decreased BS bases == improved airation; no rales; no wheezes abd - ascites again improved; BS+, no HSM, NT ext - no edema b/l, pulses 2+ b/l feet psych - affect more full Results & Data Results & Data Vital Signs (Past 12 Hours) Vital Signs Temp Pulse Resp BP BP Pulse Ox O2 Del Method 04/30/25 16:59 71 114/62 04/30/25 15:21 36.8 C 79 18 119/72 97 Room Air 04/30/25 14:12 110/68 04/30/25 08:52 74 125/79 Laboratory Results Laboratory Results - last 24 hr 04/30/25 08:00 Sodium 138 Potassium 3.5 Chloride 103 Carbon Dioxide 29 Anion Gap 6 BUN 8 Creatinine 1.38 Est Cr Clr Drug Dosing 59.0 eGFR 59.27 BUN/Creatinine Ratio 5.8 L Glucose 105 H Calcium 8.6 PG Care Time/CCT Total # of Minutes Spent Total Time Spent with Patient: Total time spent is greater than 50% in coordination of care (as documented) at patient's floor/unit and/or counseling patient: Coding Level of Care Code 09179 SUB INP/OBS CARE 2/35MIN Diagnoses Anasarca R60.1 Cirrhosis K74.60; R18.8 Ascites presence: with ascites Hepatic cirrhosis type: unspecified hepatic cirrhosis Hypothyroidism E03.9 Severe protein-calorie malnutrition E43 Failure to thrive Anorexia R63.0 (2) Cirrhosis Ascites presence: with ascites Hepatic cirrhosis type: unspecified hepatic cirrhosis Qualified Code(s): K74.60 - Unspecified cirrhosis of liver; R18.8 - Other ascites
[2025-05-01] MEDS: FUROSEMIDE 40 MG TAB PO SCH (09:01)
--- NOTE | 2025-05-01 11:48 | Hospitalist Progress Note ---
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 Volume status improved. PO intake remains very poor. #failure to thrive / anorexia - improving - -GI concerned that the ascites was causing a mechanical effect on his stomach leading to his poor appetite & nausea/vomiting -in addition GI also concerned that he could have an element of gastroparesis -repeat CT a/p with PO & IV contrast - no new pathology or obvious cancerous process -Continue mirtazapine as significantly improved on this #ascites / anasarca / cirrhosis (POA) - improved volume status - -volume status improving s/p paracentesis on 04/18 (4.8 L removed; transudative) -now stable on lasix 40mg PO daily and spironolactone 100mg PO daily -patient lives in [facility] - he wishes to establish care with [facility] in [place] for ongoing liver care -[facility] [place] [facility] consulted to for consideration of EGD in light of severe anorexia, failure to thrive, etc. -added PPI in the event he has gastritis, etc. -GI deferred on inpatient EGD; recommends such be done in the outpatient setting #Severe protein-calorie malnutrition (POA) - -improved appetite with remeron -appreciate check totaler consult & recs -cont MVI -while awaiting B6 and B1 levels placed on thiamine 200mg BID #Hypothyroidism - -TSH is 14.5 -FT4 is mildly elevated -in setting of his illness would not change his Synthroid dose at this time -simply repeat TFTs in 4-6 weeks as outpatient -Continue Synthroid 50mcg po daily #Depression - -given his failure to thrive, anorexia, poor sleep, etc -- added remeron 7.5mg HS -lowered Celexa to 10mg po qAM - consider weaning off as it doesn't seem to be helping #abnormal CXR - -effusions vs consolidation vs both on cxr -consider dedicated chest CT #?seizure d/o - -cont keppra 750mg BID #h/o strokes - -Restart aspirin -should try to resume statin as well #left eye conjunctivitis - improving/resolving - -mild -cont cipro eye drops -- 1 drop QID L eye x 5-7 days VTE Prophylaxis - Lovenox 40mg SQ HS Disposition - PT/OT recommending rehab placement, denied [facility] given lack of medical need, medically stable for discharge at this time Admission and Anticipated Discharge Date Admission Date: April 17, 2025 Subjective Much improved appetite with mirtazapine. No complaints or concerns from the patient. Updated his over the phone. Physical Exam Respiratory: normal respiratory effort, lungs clear to auscultation Cardiovascular: Rate/Rhythm: regular rate and regular rhythm Heart Sounds: no murmur Extremities: no pedal edema Gastrointestinal (Abdomen): Inspection/Auscultation: + abdomen distended (mild) Percussion/Palpation: abdomen soft; abdomen nontender, no guarding and abdomen not rigid Results & Data Results & Data Vital Signs (Past 12 Hours) Vital Signs Temp Pulse Resp BP Pulse Ox O2 Del Method 05/01/25 08:55 79 123/57 L 05/01/25 07:59 36.7 C 78 16 130/71 96 Room Air 05/01/25 07:50 Room Air PG Care Time/CCT Total # of Minutes Spent Total Time Spent with Patient: Total time spent is greater than 50% in coordination of care (as documented) at patient's floor/unit and/or counseling patient: Coding Level of Care Code 97997 SUB INP/OBS CARE 07/28MIN Diagnoses Anasarca R60.1 Cirrhosis K74.60; R18.8 Ascites presence: with ascites Hepatic cirrhosis type: unspecified hepatic cirrhosis Hypothyroidism E03.9 Severe protein-calorie malnutrition E43 Failure to thrive Anorexia R63.0 (2) Cirrhosis Ascites presence: with ascites Hepatic cirrhosis type: unspecified hepatic cirrhosis Qualified Code(s): K74.60 - Unspecified cirrhosis of liver; R18.8 - Other ascites
[2025-05-02] MEDS: ASPIRIN 81 MG ECTAB PO SCH (08:52)
--- NOTE | 2025-05-02 21:40 | Hospitalist Progress Note ---
Date of Service May 02, 2025 Assessment & Plan (1) Anasarca: (2) Cirrhosis: (3) Hypothyroidism: (4) Severe protein-calorie malnutrition: (5) Failure to thrive: (6) Anorexia: Plan 59yo male with cirrhosis (2nd to etoh? 2nd to MORENO?) presenting with worsening edema and ascites along with difficulty ambulating at home. Volume status improved. PO intake significantly improved. #failure to thrive / anorexia - improving - -GI concerned that the ascites was causing a mechanical effect on his stomach leading to his poor appetite & nausea/vomiting -in addition GI also concerned that he could have an element of gastroparesis -repeat CT a/p with PO & IV contrast - no new pathology or obvious cancerous process -Continue mirtazapine as significantly improved on this #ascites / anasarca / cirrhosis (POA) - improved volume status - -volume status improving s/p paracentesis on 04/18 (4.8 L removed; transudative) -now stable on lasix 40mg PO daily and spironolactone 100mg PO daily -patient lives in [facility] - he wishes to establish care with [facility] in [place] for ongoing liver care -[facility] [place] consulted to for consideration of EGD in light of severe anorexia, failure to thrive, etc. -added PPI in the event he has gastritis, etc. -GI deferred on inpatient EGD; recommends such be done in the outpatient setting #Severe protein-calorie malnutrition (POA) - -improved appetite with Remeron -appreciate grocery bagger consult & recs -cont MVI -B6 level normal, awaiting B1 levels placed on thiamine 200mg BID -Get phophorus level in AM now eating improved #Hypothyroidism - -TSH is 14.5 -FT4 is mildly elevated -in setting of his illness would not change his Synthroid dose at this time -simply repeat TFTs in 4-6 weeks as outpatient -Continue Synthroid 50mcg po daily #Depression - -given his failure to thrive, anorexia, poor sleep, etc -- added remeron 7.5mg HS -lowered Celexa to 10mg po qAM - consider weaning off as it doesn't seem to be helping #?seizure d/o - -cont keppra 750mg BID #h/o strokes - -Restart aspirin -consider resuming statin once mobility improves, restarting at this time suspect risk outweighs benefit in terms of helping him with rehab #left eye conjunctivitis - improving/resolving - -mild -cont cipro eye drops -- 1 drop QID L eye x 5-7 days VTE Prophylaxis - Lovenox 40mg SQ HS Disposition - medically stable for discharge Admission and Anticipated Discharge Date Admission Date: April 17, 2025 Subjective Stable. No acute concerns or questions from the patient. Physical Exam Constitutional: well developed; + not well nourished and no acute distress Respiratory: normal respiratory effort; no respiratory distress Cardiovascular: Extremities: no pedal edema Gastrointestinal (Abdomen): Percussion/Palpation: abdomen soft; abdomen nontender Results & Data Results & Data Vital Signs (Past 12 Hours) Vital Signs Temp Pulse Resp BP Pulse Ox O2 Del Method 05/02/25 17:00 75 111/58 L 05/02/25 14:52 36.6 C 80 16 114/65 94 Room Air PG Care Time/CCT Total # of Minutes Spent Total Time Spent with Patient: Total time spent is greater than 50% in coordination of care (as documented) at patient's floor/unit and/or counseling patient: Coding Level of Care Code 67693 SUB INP/OBS CARE 2/35MIN Diagnoses Anasarca R60.1 Cirrhosis K74.60; R18.8 Ascites presence: with ascites Hepatic cirrhosis type: unspecified hepatic cirrhosis Hypothyroidism E03.9 Severe protein-calorie malnutrition E43 Failure to thrive Anorexia R63.0 (2) Cirrhosis Ascites presence: with ascites Hepatic cirrhosis type: unspecified hepatic cirrhosis Qualified Code(s): K74.60 - Unspecified cirrhosis of liver; R18.8 - Other ascites
[2025-05-03 07:12] VITALS: BP 115/70; PULSE 76; RESP 12; TEMP 97.9; O2SAT 96
[2025-05-03 07:58] LABS: Anion Gap 6.0 (3-11); Blood Urea Nitrogen 7.0 mg/dl (6-23); Calcium 8.4 mg/dl (8.6-10.3); Carbon Dioxide 26.0 mmol/L (21-32); Chloride 105.0 mmol/L (98-107); Creatinine Clr Calc Pharmacy 63.5 ml/min; Glucose 90.0 mg/dl (70-99(Fasting)); Potassium 3.8 mmol/L (3.5-5.1); Sodium 137.0 mmol/L (136-145)
== END 2025-05-03 12:26 | DRG 432 ==
LOC: ED 18:28 → SUATTDRO 21:05 → EDINP 21:05 → 2S 23:19 → 2W 04-27 01:58 → 3N 04-28 21:53